=== PATIENT | male | born 1945 | race Caucasian/White ===

== ENCOUNTER 2017-03-19 07:08 | Observation (INO) | payer OTHER ==
[~2017-03-19 07:08] MED LIST: ceFAZolin 2 GM/SWFI 2 GM/20 ML SYR IVP ONE
[2017-03-19] MEDS ORDERED: LR 1,000 ML IV ONE (07:37)
[2017-03-19] MEDS ORDERED: THROMBIN (BOVINE) 5,000 UNIT VIAL TP ONE (07:38)
[2017-03-19] MEDS ORDERED: BUPIVACAINE 0.25% 30 ML SDV ONE (07:38)
[2017-03-19] MEDS ORDERED: CHLORHEXIDINE GLUC HIBICLENS 118 ML BTL TP ONE (07:38)
[2017-03-19] MEDS ORDERED: BACITRACIN 50,000 UNITS/10 ML SYR IRR ONE (07:40)
[2017-03-19] MEDS ORDERED: MIDAZOLAM 2 MG/2 ML VIAL IVP ONE (09:55)
[2017-03-19] MEDS ORDERED: MIDAZOLAM 2 MG/2 ML VIAL ONE (09:56)
--- NOTE | 2017-03-19 09:56 | PDANEPAE ---
ANE Past Medical History - Cardiovascular History Hx Hypertension: No Hx Arrhythmias: No Hx Chest Pain: No Hx Coronary Artery / Peripheral Vascular Disease: No Hx CHF / Valvular Disease: No Hx Palpitations: No - Pulmonary History Hx COPD: No Hx Asthma/Reactive Airway Disease: No Hx Recent Upper Respiratory Infection: No Hx Oxygen in Use at Home: No Hx Sleep Apnea: Yes Sleep Apnea Screening Result - Last Documented: Positive - Neurologic History Hx Cerebrovascular Accident: No Hx Seizures: No Hx Dementia: No - Endocrine History Hx Diabetes: No Hypothyroid: No Hyperthyroid: No Obesity: no - Renal History Hx Renal Disorders: No Renal History Comment: RENAL CYST - Liver History Hx Hepatic Disorders: No Hepatic History Comment: CLAUDE - Neurological & Psychiatric Hx Hx Neurological and Psychiatric Disorders: No - Cancer History Hx Cancer: No Cancer History Comment: NECK SKIN CA REMOVED - Congenital Disorder History Hx Congenital Disorders: Yes Congenital History Comment: 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 SON & FATHER ALSO POS - GI History Hx Gastrointestinal Disorders: No - Other Health History Other Health History: NEG - Chronic Pain History Chronic Pain: Yes (BACK & NECK) - Surgical History Prior Surgeries: COLONOSCOPY. CHOLECYSTECTOMY. CARPAL TUNNEL. VASECTOMY. UMB HERNIA ANE Review of Systems Review of Systems: - Exercise capacity METS (RN): 4 METS ANE Patient History - Allergies Allergies/Adverse Reactions: No Known Allergies Allergy (Unverified 03/16/17 12:47) - Home Medications Home Medications: Acyclovir 03/16/17 [Last Taken 03/12/17] Aleve 03/16/17 [Last Taken 03/11/17] Herbals/Supplements -Info Only 03/16/17 [Last Taken 03/11/17] - NPO status NPO Since - Liquids (Date): 03/18/17 NPO Since - Liquids (Time): 19:00 NPO Since - Solids (Date): 03/18/17 NPO Since - Solids (Time): 19:00 - Anes Hx Anes Hx: no prior problems - Smoking Hx Smoking Status: Never smoked Marijuana use: No - Alcohol Use Alcohol Use: Occasionally - Family Anes Hx Family Anes Hx: neg - N/A Family Hx Anesthesia Complications: NEG ANE Labs/Vital Signs - Vital Signs Blood Pressure: 144/90 Heart Rate: 75 Respiratory Rate: 16 O2 Sat (%): 94 Height: 182.88 cm Weight: 93.894 kg ANE Physical Exam - Airway Neck exam: FROM Mallampati Score: Class 1 Mouth exam: normal dental/mouth exam - Pulmonary Pulmonary: no respiratory distress, no rales or rhonchi, clear to auscultation - Cardiovascular Cardiovascular: regular rate and rhythym, no murmur, rub, or gallop - ASA Status ASA Status: II ANE Anesthesia Plan Anesthesia Plan: general endotracheal anesthesia
[2017-03-19] MEDS ORDERED: fentaNYL 100 MCG/2 ML INJ ONE ×4 (10:07→12:55)
[2017-03-19] MEDS ORDERED: PROPOFOL/EMULSION 500 MG/50 ML BOTTLE IV ONE (10:07)
[2017-03-19] MEDS ORDERED: REMIFENTANIL HCL 1 MG VIAL ONE (10:07)
[2017-03-19] MEDS ORDERED: ceFAZolin 2 GM/SWFI 20 ML SYR IVP ONE (10:07)
[2017-03-19] MEDS ORDERED: DEXAMETHASONE 4 MG/ML VIAL ONE (10:09)
[2017-03-19] MEDS ORDERED: ONDANSETRON 4 MG/2 ML VIAL ONE (10:09)
[2017-03-19] MEDS ORDERED: ROCURONIUM 50 MG/5 ML VIAL ONE (10:10)
[2017-03-19] MEDS ORDERED: LIDOCAINE 2% 5 ML SDV ONE (10:10)
[2017-03-19] MEDS ORDERED: SUGAMMADEX SODIUM 200 MG/2 ML VIAL IVP ONE (10:10)
[2017-03-19] MEDS ORDERED: PROPOFOL 200 MG/20 ML VIAL ONE (10:13)
[2017-03-19] MEDS ORDERED: PHENYLEPHRINE HCL 100 MCG/ML SYR ONE (10:16)
[2017-03-19] MEDS ORDERED: ACETAMINOPHEN 500 MG TAB PO PRN (11:17)
[2017-03-19] MEDS ORDERED: HYDROCODONE/APAP 5/325 TAB PO PRN (11:17)
[2017-03-19] MEDS ORDERED: PROMETHAZINE HCL 25 MG/ML INJ IVP PRN (11:17)
[2017-03-19] MEDS ORDERED: LR 500 ML IV PRN (11:17)
[2017-03-19] MEDS ORDERED: OXYCODONE/APAP 5/325 TAB PO PRN (11:17)
[2017-03-19] MEDS ORDERED: ONDANSETRON 4 MG/2 ML VIAL IVP PRN ×2 (11:17→11:56)
[2017-03-19] MEDS ORDERED: NALOXONE HCL 0.4 MG/ML INJ IVP PRN ×2 (11:17→12:06)
[2017-03-19] MEDS ORDERED: oxyCODONE IR 5 MG TAB PO PRN (11:56)
[2017-03-19] MEDS ORDERED: ONDANSETRON DISINTEGRATING 4 MG TAB PO PRN (11:56)
[2017-03-19] MEDS ORDERED: MAGNESIUM HYDROXIDE 30 ML UDCUP PO PRN (11:56)
[2017-03-19] MEDS ORDERED: BISACODYL 10 MG SUPP PR PRN (11:56)
[2017-03-19] MEDS ORDERED: LACTULOSE 20 GM/30 ML UDCUP PO PRN (11:56)
[2017-03-19] MEDS ORDERED: diphenhydrAMINE 25 MG CAP PO PRN (11:56)
[2017-03-19] MEDS ORDERED: NS W/ 20 KCl/L 1,000 ML IV SCH (12:00)
[2017-03-19] MEDS: fentaNYL 100 MCG/2 ML INJ IVP PRN ×5 (12:03→12:56)
--- NOTE | 2017-03-19 12:05 | PDHPUP ---
History & Physical Update H&P update statement: This history and physical update is based on an assessment of the patient which was completed after admission or registration (within 24 hours), but prior to the surgery/procedure. H&P update: H&P reviewed & patient examined, no change in patient's condition since H&P completed
[2017-03-19] MEDS ORDERED: DIAZEPAM 10 MG/2 ML SYR ONE (12:07)
--- NOTE | 2017-03-19 12:08 | POSTANESTH ---
Post Anesthetic Evaluation Cardiovascular Status: Tx Hyper/Hypo-tension Respiratory Status: Normal, Stable Level of Consciousness/Mental Status: Can Participate in Eval Pain Control: Inadeq, Add Tx Required Nausea/Vomiting Control: Adequate, Prn Tx Ordered Complications Possibly Related to Anesthesia: None Noted
[2017-03-19] MEDS: DIAZEPAM 10 MG/2 ML SYR IVP PRN ×4 (12:10→12:45)
--- NOTE | 2017-03-19 12:11 | SOAPPROG ---
SOAP Progress Note Assessment/Plan: Assessment: 71 yo M sp C5/6 ACDF Plan: stable hard collar PT/OT John x 1 please call with neuro changes 03/19/17 12:06 Subjective: + neck pain, no arm pain Objective: Vital Signs Temp Pulse Resp BP Pulse Ox 36.6 C 75 16 144/90 H 94 03/19/17 08:06 03/19/17 09:58 03/19/17 09:58 03/19/17 09:58 03/19/17 09:58 awake, alert PERRL, no facial droop KYARA x 4 + light touch ICD10 Worksheet Patient Problems: Problems Problem Status Onset Fusion of spine of cervical region Acute - ICD10 Problem Qualifiers (1) Fusion of spine of cervical region
--- NOTE | 2017-03-19 12:44 | GOP ---
[f rep st] OPERATIVE REPORT DATE OF OPERATION: 03/19/2017 SURGEON: Sammy Leung MD LICENSED INVESTMENT SALES ASSISTANT: ELLEN Fierro. ANESTHESIA: General endotracheal. 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 PROCEDURE PERFORMED: 1. Mini open exposure for a complete C5-6 anterior cervical diskectomy and arthrodesis with an 11 mm structural PEEK interbody spacer and local autograft. 2. Placement of a 23 mm CastleLoc-P LnK anterior cervical plate with self-drilling screws. 3. Use of intraoperative microscopy and fluoroscopy. FINDINGS: ESTIMATED BLOOD LOSS: Trace. INDICATIONS: The patient is a 71-year-old man with myelopathic symptoms and right upper extremity ra dicular symptoms who has a C5-6 disk herniation and both neural foraminal and central canal stenosis. He has failed extensive conservative care and presents now for surgical decompression and stabiliza tion. DESCRIPTION OF PROCEDURE: After informed was obtained, the patient was taken to the operating room a nd placed in supine position with the head in the halter retractor system. The anterior cervical reg ion was prepped and draped in sterile fashion. After fluoroscopic localization of levels, the subcut aneous and intramuscular tissues were infiltrated with local anesthesia. A horizontal linear incisio n was then created at the level of the C5-6 interspace. This was carried through the platysmal layer using the monopolar electrocautery and carried in the avascular plane between the sternocleidomastoi d and carotid sheath laterally, and the strap muscles, trachea, and esophagus medially down to the pr evertebral fascia, which was carefully incised with Metzenbaum scissors. The C5-6 interspace was rakesh ntified and re-verified using intraoperative fluoroscopy. There was an extremely large osteophyte, w hich was carefully removed and harvested for local autograft. The Wing distraction pins were inser yumiko and a slight amount of distraction created across the interspace. A complete diskectomy was then performed with preparation of endplates and removal of posterior longitudinal ligament. The posteri or protruding osteophyte was also removed, and bilateral foraminotomies were performed. Following ad equate decompression, the remaining endplates were carefully prepared and an appropriately sized 11 m m structural PEEK interbody spacer packed with local autograft in the center was placed under fluoros copic image guidance in the interspace. The distraction was removed an appropriately sized 23 mm LnK CastleLoc-P anterior cervical plate was then placed and secured with self-drilling screws. The ante rior hole of the plate was then gently packed with the residual local autograft along with in the lef t-sided uncovertebral joint. A drain was then placed. The subcutaneous and intramuscular tissues we re re-infiltrated with local anesthesia. The wound was closed in a layered fashion using interrupted Vicryl sutures followed by Steri-Strips on the skin. COMPLICATIONS: None. DISPOSITION: The patient was extubated and transferred to the recovery room in stable condition. /[id number]/MODL
[2017-03-19] MEDS: METHOCARBAMOL 750 MG TAB PO PRN (17:26)
[2017-03-19] MEDS: POLYETHYLENE GLYCOL 3350 17 GM PKT PO SCH ×2 (17:27→22:11)
[2017-03-19] MEDS: ceFAZolin 2 GM/DEXTROSE 100 ML IV SCH (17:27)
[2017-03-19] MEDS: FAMOTIDINE 20 MG TAB PO SCH (22:10)
[2017-03-19] MEDS: SENNOSIDES/DOCUSATE SODIUM TAB PO SCH (22:11)
[2017-03-20 00:45] VITALS: RESP 18
[2017-03-20] MEDS: METHOCARBAMOL 750 MG TAB PO PRN ×2 (01:19→13:19)
[2017-03-20] MEDS: ceFAZolin 2 GM/DEXTROSE 100 ML IV SCH (01:27)
[2017-03-20 04:28] VITALS: BP 123/81
--- NOTE | 2017-03-20 07:16 | SOAPPROG ---
SOAP Progress Note Assessment/Plan: Assessment: POD #1 s/p C5/6 ACDF. Doing well today with improved right hand paresthesia Tolerating scrambled eggs Plan: Hard collar at all times x 2 weeks. DC home today. Follow up in 10-14 days. Subjective: Sitting up in bed, eating breakfast. Pain well controlled. Left hand paresthesia improved. Objective: Vital Signs Temp Pulse Resp BP Pulse Ox 36.4 C 74 18 123/81 H 96 03/20/17 04:00 03/20/17 04:00 03/20/17 04:00 03/20/17 04:00 03/20/17 04:00 03/19/17 03/20/17 03/21/17 05:59 05:59 05:59 Intake Total 3569 Output Total 2105 Balance 1464 Neuro: CLAY, sens +LT 5/5 bilateral upper/lower ext Incision: Dressing dry JESSICA: 90 ml overnight. 25 ml in bulb this AM. ICD10 Worksheet Patient Problems: Problems Problem Status Onset Fusion of spine of cervical region Acute
[2017-03-20 07:32] VITALS: PULSE 61; TEMP 98.1; O2SAT 93
--- NOTE | 2017-03-20 09:12 | ASMTCMCOM ---
CM Note CM Note Notes: Chart reviewed. Pt s/p ACDF. Needs hard collar for 2 weeks. PT and OT notes pending. Needs TBD. CM to follow. Date Signed: 03/20/2017 09:11 AM Electronically Signed By:Alley Lund RN
[2017-03-20] MEDS: FAMOTIDINE 20 MG TAB PO SCH (09:56)
[2017-03-20] MEDS: SENNOSIDES/DOCUSATE SODIUM TAB PO SCH (09:56)
[2017-03-20] MEDS: POLYETHYLENE GLYCOL 3350 17 GM PKT PO SCH (09:56)
--- NOTE | 2017-03-20 12:53 | ASMTCMCOM ---
CM Note CM Note Notes: Patient medically cleared for dc. Per PT cleared with no needs, CM available should needs arise. Date Signed: 03/20/2017 12:52 PM Electronically Signed By:Alley Lund RN
[2017-03-22] MEDS ORDERED: ENOXAPARIN 40 MG/0.4 ML SYR SC SCH (09:00)
== END 2017-03-20 13:36 | disposition home or self-care (01) ==
LOC: F3N 07:08
PROVIDERS: ADMIT Neurological Surgery; ATTEND Neurological Surgery
PROC: 0RG10A0 Fusion of Cervical Vertebral Joint with Interbody Fusion Device, Anterior Approach, Anterior Column, Open Approach (ICD-10-PCS; principal; 2017-03-19 09:15)
DX: M47.12 Other spondylosis with myelopathy, cervical region (principal); M50.022 Cervical disc disorder at C5-C6 level with myelopathy; M48.02 Spinal stenosis, cervical region; G47.30 Sleep apnea, unspecified
CPT/HCPCS: 22551; 72040; 76001; 97161; 97165; C1713; G8978; G8979; G8980; G8987; G8988; G8989; J0171; J0690; J1100; J2250; J2370; J2405; J2704; J3010

== ENCOUNTER 2017-05-19 06:07 | Inpatient (IN) | payer OTHER ==
[~2017-05-19 06:07] MED LIST changes: +TRANEXAMIC ACID 1,000 MG in NS (SYRINGE) 50 ML IV ONE; -ceFAZolin 2 GM/SWFI 2 GM/20 ML SYR IVP ONE
[2017-05-19] MEDS ORDERED: REMIFENTANIL HCL 1 MG VIAL IV ONE (06:08)
[2017-05-19] MEDS ORDERED: morphINE PF 5 MG/10 ML INJ IT ONE (06:34)
[2017-05-19] MEDS ORDERED: fentaNYL 100 MCG/2 ML INJ IT ONE (06:34)
[2017-05-19] MEDS ORDERED: ACETAMINOPHEN 500 MG TAB PO ONE (06:34)
[2017-05-19] MEDS ORDERED: ceFAZolin 2 GM/SWFI 2 GM/20 ML SYR IVP ONE (06:34)
[2017-05-19] MEDS ORDERED: BUPIVACAINE 0.25% 30 ML SDV ONE ×2 (07:11→07:23)
[2017-05-19] MEDS ORDERED: CHLORHEXIDINE GLUC HIBICLENS 118 ML BTL TP ONE (07:11)
[2017-05-19] MEDS ORDERED: BACITRACIN 50,000 UNITS/10 ML SYR IRR ONE ×3 (07:12→12:30)
[2017-05-19] MEDS ORDERED: CITRATE DEXTROSE SOLN 500 ML BAG ONE ×2 (07:12→13:49)
[2017-05-19] MEDS ORDERED: THROMBIN (BOVINE) 5,000 UNIT VIAL TP ONE (07:12)
[2017-05-19] MEDS ORDERED: LR 1,000 ML IV ONE (07:34)
--- NOTE | 2017-05-19 08:25 | PDANEPAE ---
ANE History of Present Illness TLIF ANE Past Medical History - Cardiovascular History Hx Hypertension: No Hx Arrhythmias: No Hx Chest Pain: No Hx Coronary Artery / Peripheral Vascular Disease: No Hx CHF / Valvular Disease: No Hx Palpitations: No - Pulmonary History Hx COPD: No Hx Asthma/Reactive Airway Disease: No Hx Recent Upper Respiratory Infection: No Hx Oxygen in Use at Home: No Hx Sleep Apnea: Yes Sleep Apnea Screening Result - Last Documented: Positive Pulmonary History Comment: keith uses cpap - Neurologic History Hx Cerebrovascular Accident: No Hx Seizures: No Hx Dementia: No - Endocrine History Hx Diabetes: No - Renal History Hx Renal Disorders: Yes Renal History Comment: RENAL CYST - Liver History Hx Hepatic Disorders: No Hepatic History Comment: CLAUDE - Neurological & Psychiatric Hx Hx Neurological and Psychiatric Disorders: Yes Neurological / Psychiatric History Comment: neuropathy, left thigh nerve pain, causes muscle spasms across buttocks - Cancer History Hx Cancer: No Cancer History Comment: NECK SKIN CA REMOVED - Congenital Disorder History Hx Congenital Disorders: Yes Congenital History Comment: 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 SON POS - GI History Hx Gastrointestinal Disorders: No - Other Health History Other Health History: NEG - Chronic Pain History Chronic Pain: Yes (arthritis to hands) - Surgical History Prior Surgeries: COLONOSCOPY. CHOLECYSTECTOMY. CARPAL TUNNEL. VASECTOMY. UMB HERNIA. cervical fussion 03/19/17 ANE Review of Systems Review of Systems: - Exercise capacity METS (RN): 4 METS ANE Patient History - Allergies Allergies/Adverse Reactions: No Known Allergies Allergy (Verified 05/05/17 10:42) - Home Medications Home Medications: Acyclovir [Zovirax 200 mg (*)] 200 mg PO BID 03/16/17 [Last Taken 1 Week Ago ~] Herbals/Supplements -Info Only 1 ea PO DAILY 03/16/17 [Last Taken 2 Months Ago ~ 03/21/17] Cholecalciferol Vit D3 [Vitamin D3 (*)] 1,000 units PO DAILY 03/19/17 [Last Taken 2 Months Ago ~03/21/17] Tetrahydrozoline 0.05% [Visine (*)] 1 drop EACHEYE DAILY PRN 03/19/17 [Last Taken 05/18/17] Calcium Carbonate/Vitamin D3 [Calcium 1,000 + D3 Caplet] 1 each PO DAILY [Last Taken 2 Months Ago ~03/21/17] Naproxen Sodium [Aleve 220 MG (*)] 220 mg PO BID 05/01/17 [Last Taken 2 Months Ago ~03/21/17] - NPO status NPO Since - Liquids (Date): 05/18/17 NPO Since - Liquids (Time): 21:00 NPO Since - Solids (Date): 05/18/17 NPO Since - Solids (Time): 18:00 - Smoking Hx Smoking Status: Never smoked - Family Anes Hx Family Hx Anesthesia Complications: none ANE Labs/Vital Signs - Vital Signs Blood Pressure: 141/88 Heart Rate: 75 Respiratory Rate: 16 O2 Sat (%): 93 Height: 182.88 cm Weight: 91.626 kg ANE Physical Exam - Airway Neck exam: FROM Mallampati Score: Class 2 - Pulmonary Pulmonary: clear to auscultation - Cardiovascular Cardiovascular: regular rate and rhythym - ASA Status ASA Status: II ANE Anesthesia Plan Anesthesia Plan: general endotracheal anesthesia Total IV Anesthesia: Yes
[2017-05-19] MEDS ORDERED: REMIFENTANIL HCL 1 MG VIAL ONE ×7 (08:30→14:41)
[2017-05-19] MEDS ORDERED: PROPOFOL/EMULSION 500 MG/50 ML BOTTLE IV ONE ×8 (08:30→15:50)
[2017-05-19] MEDS ORDERED: MIDAZOLAM 2 MG/2 ML VIAL ONE (08:32)
[2017-05-19] MEDS ORDERED: ONDANSETRON 4 MG/2 ML VIAL ONE ×2 (08:37→16:09)
[2017-05-19] MEDS ORDERED: SUCCINYLCHOLINE CHLORIDE 200 MG/10 ML SYR IVP ONE (08:37)
[2017-05-19] MEDS ORDERED: DEXAMETHASONE 4 MG/ML VIAL ONE ×2 (08:37)
[2017-05-19] MEDS ORDERED: VANCOMYCIN HCL/NORMAL SALINE 250 ML IV ONE (09:46)
[2017-05-19] MEDS ORDERED: HYDROmorphONE/DILAUDID 2 MG/ML INJ ONE (11:22)
[2017-05-19] MEDS ORDERED: fentaNYL 100 MCG/2 ML INJ IVP PRN (13:15)
[2017-05-19] MEDS ORDERED: MIDAZOLAM 2 MG/2 ML VIAL IVP ONE (13:15)
[2017-05-19] MEDS ORDERED: HYDROmorphONE/DILAUDID 1 MG/ML INJ IVP PRN (13:15)
[2017-05-19] MEDS ORDERED: ONDANSETRON 4 MG/2 ML VIAL IVP PRN (13:15)
[2017-05-19] MEDS ORDERED: DEXAMETHASONE 4 MG/ML VIAL IVP PRN (13:15)
[2017-05-19] MEDS ORDERED: NALOXONE HCL 0.4 MG/ML INJ IVP PRN ×2 (13:15→16:53)
[2017-05-19] MEDS ORDERED: ALBUTEROL 3 ML DEYVIAL IH PRN (13:15)
[2017-05-19] MEDS ORDERED: fentaNYL 100 MCG/2 ML INJ ONE (13:26)
[2017-05-19] MEDS ORDERED: morphINE PF 5 MG/10 ML INJ ONE (13:27)
[2017-05-19] MEDS ORDERED: PHENYLEPHRINE HCL 100 MCG/ML SYR ONE ×2 (15:04→16:26)
[2017-05-19] MEDS ORDERED: diphenhydrAMINE 25 MG CAP PO PRN (16:53)
[2017-05-19] MEDS ORDERED: BISACODYL 10 MG SUPP PR PRN (16:53)
[2017-05-19] MEDS ORDERED: LACTULOSE 20 GM/30 ML UDCUP PO PRN (16:53)
[2017-05-19] MEDS ORDERED: ONDANSETRON DISINTEGRATING 4 MG TAB PO PRN (16:53)
[2017-05-19] MEDS ORDERED: HYDROmorphONE/DILAUDID 2 MG/ML INJ IVP PRN (16:53)
[2017-05-19] MEDS ORDERED: MAGNESIUM HYDROXIDE 30 ML UDCUP PO PRN (16:53)
[2017-05-19] MEDS ORDERED: NS W/ 20 KCl/L 1,000 ML IV SCH (17:00)
[2017-05-19] MEDS ORDERED: TETRAHYDROZOLINE 0.05% 15 ML OPHT.BTL EACHEYE PRN (17:02)
--- NOTE | 2017-05-19 17:08 | POSTOPPROG ---
Post Op Note Date of Operation: 05/20/17 Surgeon: Jose F Pretty Injector Assembler: DARRELL, PAc Anesthesiologist: Olesya Anesthesia: GET(General Endotracheal) Pre-op Diagnosis: L2-S1 DJD/stenosis Post-op Diagnosis: same Indication: bilateral LE weakness, pain, low back pain Procedure: L2-S1TLIF. Placement of lumbar drain Findings: severe DJD, calcified discs and tethered dura Inf/Abcess present in the surg proc area at time of surgery?: No EBL: Greater than 1000 Complications: durotomy x 3 Drains: Cheko Johnson (NOT to suction)
--- NOTE | 2017-05-19 17:12 | POSTANESTH ---
Post Anesthetic Evaluation Cardiovascular Status: Normal, Stable Respiratory Status: Similar to Pre-op Cond. Level of Consciousness/Mental Status: Mildly Sleepy, Arousable Pain Control: Adequate, Prn Tx Ordered Nausea/Vomiting Control: Adequate, Prn Tx Ordered
--- NOTE | 2017-05-19 17:18 | SOAPPROG ---
SOAP Progress Note Assessment/Plan: POST OP CHECK Assessment: doing well s/p L2-S1 TLIF Plan: HOB flat no suction to JESSICA use CPAP at night titrate LD 10-20 ml/hr - Do not clamp 05/19/17 17:15 Subjective: eyes open, comfortable, non verbal due to residual anesthesia Objective: Vital Signs Temp Pulse Resp BP Pulse Ox 37.0 C 75 16 141/88 H 93 05/19/17 06:51 05/19/17 08:25 05/19/17 08:25 05/19/17 08:25 05/19/17 08:25 HR: 98 O2: 98% BP: 118/76 Neuro PERRLA EOMI CLAY spontaneously, intermittently follows commands flexes both knees moves both feet raises both arms to face ICD10 Worksheet Patient Problems: Problems Problem Status Onset Fusion of spine of cervical region Acute
[2017-05-19] MEDS: ceFAZolin 2 GM/SWFI 2 GM/20 ML SYR IVP SCH (18:09)
--- NOTE | 2017-05-19 18:22 | GOP ---
[f rep st] OPERATIVE REPORT DATE OF OPERATION: 05/19/2017 SURGEON: Sammy Leung MD NEUROSURGEON: Sammy Leung MD ASSISTANT SHIFT SUPERVISOR: ELLEN Maurice. ANESTHESIA: General endotracheal. PREOPERATIVE DIAGNOSIS: 1. Severe multilevel lumbar degenerative joint disease and loss of normal sagittal alignment (lordosis) with multilevel severe spinal stenosis, lateral recess and foraminal impingement. 2. Intractable low back pain and left greater than right lower extremity radicular symptoms. 3. Failed conservative care. POSTOPERATIVE DIAGNOSIS: 1. Severe multilevel lumbar degenerative joint disease and loss of normal sagittal alignment (lordosis) with multilevel severe spinal stenosis, lateral recess and foraminal impingement. 2. Intractable low back pain and left greater than right lower extremity radicular symptoms. 3. Failed conservative care. PROCEDURE PERFORMED: 1. Left-sided L3-4, L4-5, and L5-S1 far lateral transpedicular decompression and right-sided L2-3 far lateral transpedicular decompression with L2 through S1 posterior segmental (pedicle screw and axle device) fixation and posterior lateral fusion with local autograft and bone morphogenic protein. 2. L2-3, L3-4, L4-5, and L5-S1 posterior/transforaminal lumbar interbody fusion with 2 structural PEEK interbody spacers, local autograft and bone morphogenic protein at each level. 3. Use of intraoperative microscopy, fluoroscopy, and computer volumetric stereotactic navigation with intraoperative neurophysiologic testing. 4. Injection of intrathecal narcotic analgesics in subcutaneous and intramuscular local anesthesia for postoperative pain control. 5. Extension of laminectomy defect for repair of cerebrospinal fluid leak. 6. Placement of lumbar drain for therapeutic drainage of cerebrospinal fluid. FINDINGS: ESTIMATED BLOOD LOSS: 850 cc. INDICATIONS: The patient is a 71-year-old man, with longstanding history of intractable low back pain and left greater than right lower extremity radicular symptoms including pain, weakness, and numbness. He has failed extensive conservative care and presents now for multilevel surgical decompression and stabilization. DESCRIPTION OF PROCEDURE: After informed consent was obtained, the patient was taken to the operating room and placed in the prone position on the Cheko table. The lumbosacral area was prepped and draped in a sterile fashion. After fluoroscopic localization of the correct levels, the subcutaneous and intramuscular tissues were infiltrated with local anesthesia. A midline linear incision was then created over the L2 through S1 spinous processes. This was carried down to the fascial layer, which was incised using monopolar electrocautery and carried in the subperiosteal plane along the spinous process and out the lamina bilaterally. There were very overgrown facet joints and the anatomy was very distorted, but this was carefully dissected out and after re- verification of the correct levels, dissection was carried out over the facet joints and left-sided far lateral transpedicular decompressions were performed with complete unroofing of the neural foramina and facet joints at L3-4, L4-5, and L5-S1, with a right-sided decompression at the L2-3 level. Following this, the [employer] neuronavigational system was brought in and using computer volumetric stereotactic navigation, pedicle screws were placed at L2, L3, L4, and L5, and S1 bilaterally. Each individual screw was tested neurophysiologically with monopolar electrostimulation and interpretation of the potentials by the surgeon. Small individual rods were then placed first at L5-S1, then at L4-5, then at L3-4, then at L2-3, during which time distraction was created across each of the interspaces and complete diskectomies were performed with preparation of endplates and placement of 2 structural PEEK interbody spacers, local autograft, and bone morphogenic protein for L2-3, L3-4 , L4-5, and L5-S1 posterior/transforaminal lumbar interbody fusions. Note that at essentially every level, the disk herniations were extremely calcified and stuck to the dura. Meticulous dissection was performed in order to carefully peel the dura off the calcified longstanding disk herniations, but there were some extremely thin areas of dura and some leakage on the left at the L5-S1 level and on the right at the L2-3 level and possibly at the L3-4 level on the left. Small pieces of DuraGen were placed in these areas and the leakage at the L5-S1 level on the left did require a single 4-0 Nurolon suture. There was no ongoing leakage thereafter, but I was concerned given the nature of the extremely thin dura that was stuck to the disk spaces that we had removed. I felt that it was in the best interest of the patient to place a lumbar drain and keep him flat for a few days so as to not end up with a chronic CSF leak. Following adequate decompression and placement of the interbody grafts, the small rods were removed and longer rods were contoured with maximal lordosis in order to prevent flat back syndrome. These were placed from L2-S1 and a slight amount of compression was created across each of the interspaces in order to prevent interbody spacer back out and to increase the likelihood of interbody fusion. Following this, the remaining lamina and facet joints on the left at L2 -3 and on the right at L3-4, L4-5, and L5-S1 were extensively decorticated and the residual local autograft along with bone morphogenic protein was packed into the decorticated lamina and drilled out facet joints for posterolateral fusions from L2-S1. Following this, the lumbar drain was placed at the superior aspect of the wound, but being careful not to place the needle at the level of the conus. The catheter was tunneled and good CSF outflow was obtained. 200 mcg of Duramorph along with 50 mcg of fentanyl were injected intrathecally through the lumbar drain catheter, which was connected to a Joseph drainage system and secured to the skin with a single nylon suture. Following this and placement of the posterolateral bone graft from L2-S1, a subfascial Cheko-Johnson was placed and the wound was closed in a layered fashion using interrupted Vicryl sutures, followed by Dermabond on the skin. COMPLICATIONS: None. DISPOSITION: The patient was extubated and transported to the intensive care unit due to the lumbar drain. /[id number]/MODL MTDD
[2017-05-19] MEDS: GABAPENTIN 300 MG CAP PO SCH (21:25)
[2017-05-19] MEDS: ACETAMINOPHEN 500 MG TAB PO SCH (21:25)
[2017-05-19] MEDS: SENNOSIDES/DOCUSATE SODIUM TAB PO SCH (21:25)
[2017-05-19] MEDS: POLYETHYLENE GLYCOL 3350 17 GM PKT PO SCH (21:25)
[2017-05-19] MEDS: morphINE SR 15 MG TAB PO SCH (21:25)
[2017-05-19] MEDS: ACYCLOVIR 200 MG CAP PO SCH (21:25)
[2017-05-19] MEDS: FAMOTIDINE 20 MG TAB PO SCH (21:25)
[2017-05-19] MEDS ORDERED: ceFAZolin 2 GM/DEXTROSE 100 ML IV SCH (22:00)
[2017-05-19] MEDS: morphINE PCA 30 MG/30 ML PCA IV PRN (22:36)
[2017-05-19] MEDS: ONDANSETRON 4 MG/2 ML VIAL IVP PRN (22:39)
[2017-05-20] MEDS: ceFAZolin 2 GM/SWFI 2 GM/20 ML SYR IVP SCH (02:21)
[2017-05-20] MEDS ORDERED: chlorproMAZINE HCL 25 MG TAB PO PRN (03:07)
[2017-05-20 05:13] LABS: PLATELET COUNT 189 10^3/uL (150-400)
[2017-05-20] MEDS: ACETAMINOPHEN 500 MG TAB PO SCH ×3 (05:31→21:11)
[2017-05-20] MEDS: oxyCODONE IR 5 MG TAB PO PRN ×2 (05:31→20:14)
[2017-05-20] MEDS: GABAPENTIN 300 MG CAP PO SCH ×3 (05:31→21:11)
--- NOTE | 2017-05-20 07:24 | SOAPPROG ---
SOAP Progress Note Assessment/Plan: Assessment: doing well s/p L2-S1 TLIF Left leg still painful but improved LD patent but blood. Discussed with Dr. Caban and he wants rate changed to 5-10ml/hr Plan: HOB flat no suction to JESSICA use CPAP at night titrate LD 5-10 ml/hr - Do not clamp legal technician to assist with management of medical issues. Blood sugar 160 this AM. Discussed with Dr. Caban this AM 05/20/17 07:28 Subjective: Awake, alert, comfortable. States his left anterior thigh is still painful, but improved. Denies new numbness, tingling or weakness Objective: Vital Signs Temp Pulse Resp BP Pulse Ox 37.5 C 80 15 108/51 L 93 05/20/17 04:00 05/20/17 06:00 05/20/17 06:00 05/20/17 06:00 05/20/17 06:00 Laboratory Results 05/20/17 05:05 05/20/17 05:05 05/19/17 05/20/17 05/21/17 05:59 05:59 05:59 Intake Total 2848 Output Total 1465 15 Balance 1383 -15 Neuro: CLAY, Sens throughout 07/11 bilateral LE JESSICA: 30ml overnight Incision: quarter sized area of drainage towards top of incision LUmbar drain: patent, bloody. drained 10-20ml/hr overnight. - Pending Discharge Pending Discharge Within 24 Hours: No Pending Discharge Within 48 Hours: No ICD10 Worksheet Patient Problems: Problems Problem Status Onset Fusion of spine of cervical region Acute
[2017-05-20] MEDS: ENOXAPARIN 40 MG/0.4 ML SYR SC SCH (09:10)
[2017-05-20] MEDS: CHOLECALCIFEROL VIT D3 1,000 UNITS TAB PO SCH (09:11)
[2017-05-20] MEDS: ACYCLOVIR 200 MG CAP PO SCH ×2 (09:11→21:11)
[2017-05-20] MEDS: morphINE SR 15 MG TAB PO SCH ×2 (09:11→21:11)
[2017-05-20] MEDS: SENNOSIDES/DOCUSATE SODIUM TAB PO SCH ×2 (09:11→21:11)
[2017-05-20] MEDS: FAMOTIDINE 20 MG TAB PO SCH ×2 (09:11→21:10)
[2017-05-20] MEDS: CALCIUM CARB W/VIT D 500 MG TAB PO SCH (09:11)
[2017-05-20] MEDS: POLYETHYLENE GLYCOL 3350 17 GM PKT PO SCH ×3 (09:11→21:12)
[2017-05-20] MEDS ORDERED: D50W 25 GM/50 ML SYR IVP PRN (09:54)
--- NOTE | 2017-05-20 10:19 | GCON ---
[f rep st] CONSULTATION TELEGRAPH OFFICE TELEPHONE CLERK CONSULTATION The patient was examined postoperatively after receiving L2-S1 TLIF. The patient is a very pleasant 71-year-old white male with a past medical history of obstructive sleep apnea. He is examined postop eratively after receiving L2 through S1 TLIF. In discussion with the patient, he states he is still having some burning sensation of his left thigh. Otherwise he feels well. He denies any cough or pro ductive sputum. There is no chest pain, pleuritic-type chest pain or angina equivalent. He denies a [place] fever or night sweats. Currently, he is resting comfortably. PAST MEDICAL HISTORY: Significant for obstructive sleep apnea. ALLERGIES: No known allergies to medications. SOCIAL HISTORY: No history of tobacco use and frequent alcohol use. Work history: He is retired fr om the [employer] where he worked in [employer]. He is with 6 children. He has been living in [place] most of his life. FAMILY HISTORY: Significant for diabetes. REVIEW OF SYSTEMS: A 10-point review of systems was performed and is negative with the exception of what is seen in the HPI. MEDICATIONS: Include Aleve, vitamin D and acyclovir. PHYSICAL EXAM: VITAL SIGNS: Blood pressure 136/55, pulse is 85, respirations are 18, temperature is 37.0, oxygen saturation 95% on 2 L. GENERAL: He is a well-developed, well-nourished, elderly white male who is resting comfortably in mild distress. HEENT: Eyes CATALINO, EOMI. Throat shows no erythe ma or tonsillar hypertrophy. NECK: Supple. There is no cervical adenopathy. HEART: Regular rate and rhythm without murmurs, rubs, or gallops. LUNGS: Show diminished breath sounds, but no wheeze. ABDOMEN: Soft, nontender. Bowel sounds are present in all 4 quadrants. EXTREMITIES: No clubbing, cyanosis, or edema. LABORATORY DATA: White count is 10.5, hemoglobin 13, hematocrit 39, platelet count is 189. Sodium 1 40, potassium 4.9, chloride 108, CO2 26, BUN is 19, creatinine 0.8, glucose is 164. Arterial blood g as, pH 7.35, pCO2 of 39, PO2 of 96, bicarb 22, oxygen saturation 97%. IMPRESSION: 1. Status post transforaminal lumbar interbody fusion L2 through S1. 2. Obstructive sleep apnea. 3. Pain well controlled. 4. Elevated blood sugar. RECOMMENDATIONS: 1. Continue adequate pain control. 2. We will get a hemoglobin A1c as well as place patient on a sliding scale. 3. DVT and PE prophylaxis. 4. Stress ulcer prophylaxis. 5. PT and OT. 6. Early ambulation. /[id number]/MODL
--- NOTE | 2017-05-20 10:32 | PDMN ---
Medical Necessity Medical necessity: IP surgery per [facility] cpt [id number]
--- NOTE | 2017-05-20 10:46 | ASMTCMCOM ---
CM Note CM Note Notes: Patient is POD #1 L2-S1 TLIF. He is on bedrest, PT/OT on hold until this is discontinued. Patient lives with his Amy and has six children. Discharge needs are TBD and will be managed by Case Management. Date Signed: 05/20/2017 10:46 AM Electronically Signed By:Sydnie Burger RN
[2017-05-20] MEDS ORDERED: PNEUMOC 13-VAL CONJ-DIP CRM/PF 0.5 ML SYR IM ONE (11:10)
[2017-05-20] MEDS: INSULIN LISPRO 100 UNIT/ML SC SCH ×2 (12:48→18:42)
--- NOTE | 2017-05-20 14:14 | PDHOSCONS ---
History and Physical - Chief Complaint Hyperglycemia - History of Present Illness We have been asked to provide consultation for Hyperglycemia by the Neurosurgery team: This is a 71 yo male admitted for L2-S1 TLIF who was found to have glucose around 160 today. He has a family hx of diabetes. Given the hyperglycemia we have been asked to provide consultation. from a post op perspective, he still has left leg radiculopathy. Pain is well controlled PMHx: MARII PSHx: Right carpal tunnel release, c5/6 ACDF, cholecystectomy SHx: No T, social ETOH, no illicits FmHx: DMII History Information - Allergies/Home Medication List Allergies/Adverse Reactions: No Known Allergies Allergy (Verified 05/05/17 10:42) Home Medications: Acyclovir [Zovirax 200 mg (*)] 200 mg PO BID 03/16/17 [Last Taken 1 Week Ago ~] Herbals/Supplements -Info Only 1 ea PO DAILY 03/16/17 [Last Taken 2 Months Ago ~ 03/21/17] Cholecalciferol Vit D3 [Vitamin D3 (*)] 1,000 units PO DAILY 03/19/17 [Last Taken 2 Months Ago ~03/21/17] Tetrahydrozoline 0.05% [Visine (*)] 1 drop EACHEYE DAILY PRN 03/19/17 [Last Taken 05/18/17] Calcium Carbonate/Vitamin D3 [Calcium 1,000 + D3 Caplet] 1 each PO DAILY [Last Taken 2 Months Ago ~03/21/17] Naproxen Sodium [Aleve 220 MG (*)] 220 mg PO BID 05/01/17 [Last Taken 2 Months Ago ~03/21/17] I have personally reviewed and updated: medical history, social history - Social History Smoking Status: Never smoked Review of Systems Review of Systems: ROS: 10pt was reviewed & negative except for what was stated in HPI & below Physical Exam Physical Exam: Temp Pulse Resp BP Pulse Ox 37 C 83 16 146/59 H 97 05/20/17 08:00 05/20/17 14:00 05/20/17 14:00 05/20/17 14:00 05/20/17 14:00 O2 (L/minute) 2 Constitutional: no apparent distress Eyes: PERRL, EOMI Ears, Nose, Mouth, Throat: moist mucous membranes, hearing normal Cardiovascular: regular rate and rhythym, No JVD, No edema Respiratory: no respiratory distress, no rales or rhonchi, clear to auscultation Gastrointestinal: normoactive bowel sounds, soft, non-tender abdomen Skin: warm Neurologic: AAOx3 Psychiatric: interacting appropriately, not anxious Lymph, Heme, Immunologic: No petechiae Lab Data & Imaging Review 05/20/17 05:05 05/20/17 05:05 WBC 10.59 10^3/uL (3.80-9.50) H 05/20/17 05:05 RBC 4.42 10^6/uL (4.40-6.38) 05/20/17 05:05 Hgb 13.7 g/dL (13.7-17.5) 05/20/17 05:05 Hct 39.7 % (40.0-51.0) L 05/20/17 05:05 MCV 89.8 fL (81.5-99.8) 05/20/17 05:05 MCH 31.0 pg (27.9-34.1) 05/20/17 05:05 MCHC 34.5 g/dL (32.4-36.7) 05/20/17 05:05 RDW 12.7 % (11.5-15.2) 05/20/17 05:05 Plt Count 189 10^3/uL (150-400) 05/20/17 05:05 MPV 9.2 fL (8.7-11.7) 05/20/17 05:05 Neut % (Auto) 83.4 % (39.3-74.2) H 05/20/17 05:05 Lymph % (Auto) 7.2 % (15.0-45.0) L 05/20/17 05:05 [place] % (Auto) 9.0 % (4.5-13.0) 05/20/17 05:05 Eos % (Auto) 0.0 % (0.6-7.6) L 05/20/17 05:05 Baso % (Auto) 0.1 % (0.3-1.7) L 05/20/17 05:05 Nucleat RBC Rel Count 0.0 % (0.0-0.2) 05/20/17 05:05 Absolute Neuts (auto) 8.84 10^3/uL (1.70-6.50) H 05/20/17 05:05 Absolute Lymphs (auto) 0.76 10^3/uL (1.00-3.00) L 05/20/17 05:05 Absolute Monos (auto) 0.95 10^3/uL (0.30-0.80) H 05/20/17 05:05 Absolute Eos (auto) 0.00 10^3/uL (0.03-0.40) L 05/20/17 05:05 Absolute Basos (auto) 0.01 10^3/uL (0.02-0.10) L 05/20/17 05:05 Absolute Nucleated RBC 0.00 10^3/uL (0-0.01) 05/20/17 05:05 Immature Gran % 0.3 % (0.0-1.1) 05/20/17 05:05 Immature Gran # 0.03 10^3/uL (0.00-0.10) 05/20/17 05:05 Puncture Site ARTERIAL LINE 05/19/17 08:03 Patient Temperature 37.0 DEGREES 05/19/17 08:03 pCO2 39 mmHg (34-38) H 05/19/17 08:03 pO2 96 mmHg (65-75) H 05/19/17 08:03 Total CO2 22 mEq/L (23-27) L 05/19/17 08:03 ABG pH 7.35 (7.35-7.45) 05/19/17 08:03 ABG HCO3 21 mEq/L (22-26) L 05/19/17 08:03 ABG O2 Saturation 97 % (92-95) H 05/19/17 08:03 ABG Base Excess -3.6 mEq/L (-2.5-2.5) L 05/19/17 08:03 Total O2 Concentration 10.0 LITERS 05/19/17 08:03 Sodium 140 mEq/L (135-145) 05/20/17 05:05 Potassium 4.9 mEq/L (3.5-5.2) 05/20/17 05:05 Chloride 108 mEq/L (97-110) 05/20/17 05:05 Carbon Dioxide 26 mEq/l (22-31) 05/20/17 05:05 Anion Gap 6 mEq/L (8-16) L 05/20/17 05:05 BUN 19 mg/dL (7-23) 05/20/17 05:05 Creatinine 0.8 mg/dL (0.7-1.3) 05/20/17 05:05 Estimated GFR > 60 05/20/17 05:05 Glucose 164 mg/dL (70-100) H 05/20/17 05:05 POC Glucose 137 mg/dL (70-100) H 05/20/17 11:31 Hemoglobin A1c 6.0 % (4.0-6.0) 05/20/17 05:05 Estim Average Glucose 126 mg/dL (68-126) 05/20/17 05:05 Calcium 8.2 mg/dL (8.5-10.4) L 05/20/17 05:05 Patient ABO/Rh O POSITIVE 05/19/17 08:15 Antibody Screen NEGATIVE 05/19/17 08:15 Assessment & Plan Assessment: #Hyperglycemia #MARII, on CPAP #s/p L2-S1 TLIF #chronic low back pain with left sided radiculopathy Plan: -start insulin sliding scale -check a1c -post op care per primary Thank you for this consult, we will follow along
[2017-05-20] MEDS: METHOCARBAMOL 750 MG TAB PO PRN (18:49)
[2017-05-21] MEDS: oxyCODONE IR 5 MG TAB PO PRN ×2 (03:11→11:30)
[2017-05-21] MEDS: METHOCARBAMOL 750 MG TAB PO PRN ×2 (03:11→11:30)
[2017-05-21] MEDS: GABAPENTIN 300 MG CAP PO SCH ×3 (06:09→20:56)
[2017-05-21] MEDS: ACETAMINOPHEN 500 MG TAB PO SCH ×3 (06:09→20:57)
[2017-05-21] MEDS: INSULIN LISPRO 100 UNIT/ML SC SCH ×3 (09:10→17:25)
[2017-05-21] MEDS: SENNOSIDES/DOCUSATE SODIUM TAB PO SCH ×2 (09:20→20:56)
[2017-05-21] MEDS: FAMOTIDINE 20 MG TAB PO SCH ×2 (09:20→20:57)
[2017-05-21] MEDS: CHOLECALCIFEROL VIT D3 1,000 UNITS TAB PO SCH (09:21)
[2017-05-21] MEDS: NS 1,000 ML IV SCH (09:21)
[2017-05-21] MEDS: ACYCLOVIR 200 MG CAP PO SCH ×2 (09:21→20:57)
[2017-05-21] MEDS: POLYETHYLENE GLYCOL 3350 17 GM PKT PO SCH ×3 (09:21→20:57)
[2017-05-21] MEDS: ENOXAPARIN 40 MG/0.4 ML SYR SC SCH (09:21)
[2017-05-21] MEDS: morphINE SR 15 MG TAB PO SCH ×2 (09:21→20:56)
[2017-05-21] MEDS: CALCIUM CARB W/VIT D 500 MG TAB PO SCH (09:21)
--- NOTE | 2017-05-21 09:42 | NEUSURGPN ---
Assessment/Plan: Assessment: doing well s/p L2-S1 TLIF Left leg and back still painful but improved Plan: HOB flat Pain management - continue current regimen HOB flat no suction to JESSICA LD drain in place - titrate to 5-10 cc out per hour. Do not clamp. use CPAP at night hospitalists assisting with management of medical issues. Discussed with Dr. Caban this AM Please call NS with any questions or concerns Subjective: Pt resting in bed, using CPAP. States he gets uncomfortable in bed. Objective: AAOx3 NAD VSS MAEx4 Motor 5/5 BLE JESSICA drain in place LD in place +LT Urinary Catheter in Place: Yes Urinary Catheter Indication: Surgical Requirement Catheter Insertion Date: 05/19/17 - Physician Discussed Patient with DrDenis: Xochitl Neurosurgery Physical Exam - Vitals, I&O, Labs I and O 05/20/17 05/21/17 05/22/17 05:59 05:59 05:59 Intake Total 2848 3908 Output Total 1465 3648 19 Balance 1383 260 -19 Weight 91.626 kg Intake: Oral (ml) 720 1370 IV Intake (ml) 1000 IV Infused (ml) 1128 2538 NS W/ 20 KCl/L 1,000 ml @ 1123 100 mls/hr IV CONT LEORA Rx#:[id number] Ns 1,000 ml @ 100 mls/hr 2519 IV CONT LEORA Rx#: [id number] morphINE PHARMACOMETRICIAN See Protocol 5 19 IV PRN PRN Rx#: [id number] Output: Urine (ml) 1225 3400 Catheter 1225 3400 CSF Drainage Amount 210 208 19 Lumbar Drain 210 208 19 JESSICA Drain Output (ml) 30 40 Left Posterior Back 30 40 Other: Intake Quantity Yes Sufficient Number of Stools Catheter 0 Vital Signs Temp Pulse Resp BP Pulse Ox 37.1 C 90 22 H 138/68 H 91 L 05/21/17 07:55 05/21/17 09:00 05/21/17 09:00 05/21/17 09:00 05/21/17 09:00 Laboratory Results 05/20/17 05:05 05/20/17 05:05 ICD10 Worksheet Patient Problems: Problems Problem Status Onset Fusion of spine of cervical region Acute
[2017-05-21] MEDS: ONDANSETRON 4 MG/2 ML VIAL IVP PRN ×2 (09:51→14:14)
--- NOTE | 2017-05-21 10:56 | HOSPPROG ---
Hospitalist Progress Note Assessment/Plan: #Hyperglycemia, resolving, no e/o of DMII -A1C 6 -Glucose overall well controlled #MARII, on CPAP #s/p L2-S1 TLIF #chronic low back pain with left sided radiculopathy #Nausea: PRN antiemetics Plan: Some nausea this morning. Better with zofran. Glucose ok. Overall stable from medical mgmt. A1C reviewed, glucose reviewed. Post op care per primary Lovenox for DVT proph per primary Thank you for this consult, we will follow along Subjective: some nausea this morning. Pain is well controlled. Objective: Vital Signs Temp Pulse Resp BP Pulse Ox 37.1 C 86 19 130/107 H 94 05/21/17 07:55 05/21/17 09:53 05/21/17 09:53 05/21/17 09:53 05/21/17 09:53 Laboratory Results 05/20/17 05:05 05/20/17 05:05 05/20/17 05/21/17 05/22/17 05:59 05:59 05:59 Intake Total 2848 3908 Output Total 1465 3648 24 Balance 1383 260 -24 - Physical Exam Constitutional: no apparent distress Eyes: PERRL Ears, Nose, Mouth, Throat: moist mucous membranes, hearing normal Cardiovascular: regular rate and rhythym, No edema Respiratory: no respiratory distress, no rales or rhonchi, clear to auscultation Gastrointestinal: normoactive bowel sounds Skin: warm Neurologic: AAOx3 Psychiatric: interacting appropriately, not anxious, not encephalopathic Lymph, Heme, Immunologic: No petechiae ICD10 Worksheet Patient Problems: Problems Problem Status Onset Fusion of spine of cervical region Acute
--- NOTE | 2017-05-21 11:11 | PDINTPN ---
Inbound Call Center Representative Progress Note Assessment/Plan: Assessment/plan: * Status post TLIF L2 through S1. Lumbar drain still in place -continue to lie flat * Pain-fairly well controlled * Obstructive sleep apnea-continues on his home machine at night. * VTE prophylaxis * Stress ulcer prophylaxis Subjective: Pain better than yesterday. No other current complaints. Objective: Vital Signs Temp Pulse Resp BP Pulse Ox 37.1 C 85 17 149/76 H 97 05/21/17 07:55 05/21/17 11:00 05/21/17 11:00 05/21/17 11:00 05/21/17 11:00 Laboratory Results 05/20/17 05:05 05/20/17 05:05 05/20/17 05/21/17 05/22/17 05:59 05:59 05:59 Intake Total 2848 3908 Output Total 1465 3648 34 Balance 1383 260 -34 - Time Spent With Patient Time Spent With Patient: 25 min of time spent with patient, over 1/2 involved with coordination of care or counseling Physical Exam - Physical Exam General Appearance: WD/WN, alert EENT: PERRL/EOMI, normal ENT inspection Neck: non-tender, full range of motion, supple, normal inspection Respiratory: chest non-tender, lungs clear, normal breath sounds Cardiac/Chest: normal peripheral pulses, regular rate, rhythm, systolic murmur Abdomen: normal bowel sounds, non-tender, soft Male Genitalia: deferred Rectal: deferred Skin: normal color, warm/dry Extremities: normal range of motion, non-tender, normal inspection, normal capillary refill Neuro/Psych: alert ICD10 Worksheet Patient Problems: Problems Problem Status Onset Fusion of spine of cervical region Acute
[2017-05-22] MEDS: morphINE PCA 30 MG/30 ML PCA IV PRN (02:48)
[2017-05-22] MEDS: METHOCARBAMOL 750 MG TAB PO PRN ×2 (04:17→10:40)
[2017-05-22] MEDS: oxyCODONE IR 5 MG TAB PO PRN ×3 (05:07→16:46)
[2017-05-22] MEDS: GABAPENTIN 300 MG CAP PO SCH ×3 (05:08→21:18)
[2017-05-22] MEDS: ACETAMINOPHEN 500 MG TAB PO SCH ×3 (05:08→21:19)
--- NOTE | 2017-05-22 07:15 | SOAPPROG ---
SOAP Progress Note Assessment/Plan: Assessment: POD#3 doing well s/p L2-S1 TLIF bilateral buttock discomfort this AM, no new neuro changes Plan: HOB flat no suction to JESSICA use CPAP at night titrate LD 5-10 ml/hr - Do not clamp cnc manufacturing engineer to assist with management of medical issues. Discussed with Dr. Caban Subjective: awake, comfortable. He is reporting pain across his buttock this AM, likely due to having to lay flat denies new numbness, tingling or weakness Objective: Vital Signs Temp Pulse Resp BP Pulse Ox 37.3 C 88 14 134/71 H 94 05/22/17 04:00 05/22/17 06:00 05/22/17 06:00 05/22/17 06:00 05/22/17 06:00 Laboratory Results 05/20/17 05:05 05/20/17 05:05 18 05/22/17 05/23/17 05:59 05:59 05:59 Intake Total 3908 2755.6 Output Total 3648 3950 5 Balance 260 -1194.4 -5 JESSICA: 40ml Neuro: CLAY, sens +LT, follows commands Incision: CDI, no drainage ICD10 Worksheet Patient Problems: Problems Problem Status Onset Fusion of spine of cervical region Acute
[2017-05-22] MEDS: CALCIUM CARB W/VIT D 500 MG TAB PO SCH (08:58)
[2017-05-22] MEDS: FAMOTIDINE 20 MG TAB PO SCH ×2 (08:58→21:19)
[2017-05-22] MEDS: ACYCLOVIR 200 MG CAP PO SCH ×2 (08:58→21:18)
[2017-05-22] MEDS: POLYETHYLENE GLYCOL 3350 17 GM PKT PO SCH ×3 (08:58→21:19)
[2017-05-22] MEDS: INSULIN LISPRO 100 UNIT/ML SC SCH ×3 (08:58→19:01)
[2017-05-22] MEDS: morphINE SR 15 MG TAB PO SCH ×2 (08:58→21:19)
[2017-05-22] MEDS: CHOLECALCIFEROL VIT D3 1,000 UNITS TAB PO SCH (08:58)
[2017-05-22] MEDS: SENNOSIDES/DOCUSATE SODIUM TAB PO SCH ×2 (08:58→21:19)
[2017-05-22] MEDS: ENOXAPARIN 40 MG/0.4 ML SYR SC SCH (08:59)
--- NOTE | 2017-05-22 09:47 | PDINTPN ---
Grind Operator Progress Note Assessment/Plan: Assessment/plan: * Status post TLIF L2 through S1. Lumbar drain possibly out this afternoon -continue to lie flat * Pain-fairly well controlled * Obstructive sleep apnea-continues on his home machine at night. * VTE prophylaxis * Stress ulcer prophylaxis * Nutrition-adequate * No PT/OT yet Subjective: Resting comfortably in bed. Pain is well controlled. Low level agitation Objective: Vital Signs Temp Pulse Resp BP Pulse Ox 36.6 C 78 18 140/68 H 97 05/22/17 07:00 05/22/17 09:00 05/22/17 09:00 05/22/17 09:00 05/22/17 09:00 Laboratory Results 05/20/17 05:05 05/20/17 05:05 05/21/17 05/22/17 05/23/17 05:59 05:59 05:59 Intake Total 3908 2755.6 Output Total 3648 3950 19 Balance 260 -1194.4 -19 - Time Spent With Patient Time Spent With Patient: 25 min of time spent with patient, over 1/2 involved with coordination of care counseling. Case discussed with nursing Physical Exam - Physical Exam General Appearance: alert, no apparent distress EENT: PERRL/EOMI Neck: non-tender, full range of motion Respiratory: chest non-tender, lungs clear, normal breath sounds Cardiac/Chest: normal peripheral pulses, regular rate, rhythm Peripheral Pulses: 2+: carotid (R), carotid (L), femoral (R), femoral (L), dorsalis-pedis (R), dorsalis-pedis (L) Abdomen: normal bowel sounds, non-tender, soft Male Genitalia: deferred Rectal: deferred Skin: normal color, warm/dry Extremities: non-tender Neuro/Psych: alert, normal mood/affect, oriented x 3 ICD10 Worksheet Patient Problems: Problems Problem Status Onset Fusion of spine of cervical region Acute
--- NOTE | 2017-05-22 11:27 | HOSPPROG ---
Hospitalist Progress Note Assessment/Plan: #Hyperglycemia, resolving, no e/o of DMII -A1C 6 -Glucose overall well controlled #MARII, on CPAP #s/p L2-S1 TLIF #chronic low back pain with left sided radiculopathy #Nausea: PRN antiemetics Plan: glucose is overall well controlled Post op care per primary Lovenox for DVT proph per primary Dispo per primary Thank you for this consult, we will cont to follow Subjective: some pain today. glucose overall well controlled. Objective: Vital Signs Temp Pulse Resp BP Pulse Ox 36.6 C 91 26 H 117/50 L 95 05/22/17 07:00 05/22/17 10:00 05/22/17 10:00 05/22/17 10:00 05/22/17 10:00 Laboratory Results 05/20/17 05:05 05/20/17 05:05 05/21/17 05/22/17 05/23/17 05:59 05:59 05:59 Intake Total 3908 2755.6 Output Total 3648 3950 624 Balance 260 -1194.4 -624 - Physical Exam Constitutional: no apparent distress, appears nourished Eyes: PERRL, EOMI Ears, Nose, Mouth, Throat: moist mucous membranes Cardiovascular: No edema Respiratory: no respiratory distress Gastrointestinal: No distension Neurologic: AAOx3 Psychiatric: interacting appropriately, not anxious, not encephalopathic Lymph, Heme, Immunologic: No petechiae ICD10 Worksheet Patient Problems: Problems Problem Status Onset Fusion of spine of cervical region Acute
--- NOTE | 2017-05-22 11:34 | ASMTCMCOM ---
CM Note CM Note Notes: Patient and his both expressed today their choice for SNF rehab is [facility] in [place]. A referral was made through [employer] and a message was left for Ilsa Whitley, who Anthony (patient's son) states is the admissions contact. Ilsa's # is [phone]. Patient's son Anthony works at this SNF and wants to be able to closely monitor his progress. Explained to Anthony we steff need to make the D/C arrangements on this end including transportation as the family thought they could do it themselves. CM will follow. Date Signed: 05/22/2017 11:33 AM Electronically Signed By:Marifer Garay LCSW
[2017-05-22] MEDS: DIAZEPAM 5 MG TAB PO PRN ×2 (13:15→21:20)
[2017-05-22] MEDS ORDERED: LIDOCAINE 1% 300 MG/30 ML SDV MISC ONE (13:45)
[2017-05-22] MEDS ORDERED: LIDOCAINE 1% 300 MG/30 ML SDV IF ONE (14:30)
[2017-05-22] MEDS: BACITRACIN OINTMENT 1 PACKET TP SCH ×2 (15:40→21:18)
[2017-05-23] MEDS: DIAZEPAM 5 MG TAB PO PRN (01:57)
[2017-05-23] MEDS: GABAPENTIN 300 MG CAP PO SCH ×3 (06:28→21:24)
[2017-05-23] MEDS: ACETAMINOPHEN 500 MG TAB PO SCH ×3 (06:29→21:24)
[2017-05-23] MEDS: METHOCARBAMOL 750 MG TAB PO PRN ×2 (06:31→17:28)
--- NOTE | 2017-05-23 07:36 | SOAPPROG ---
SOAP Progress Note Assessment/Plan: Assessment/plan: * Status post TLIF L2 through S1. Lumbar drain possibly out this afternoon -continue to lie flat * Pain-fairly well controlled * Hyperglycemia-diabetes unlikely as hemoglobin A1c is 6.0. Blood sugars are running high though. -will increase sliding scale * Obstructive sleep apnea-continues on his home machine at night. * VTE prophylaxis * Stress ulcer prophylaxis * Nutrition-adequate * No PT/OT yet Subjective: Resting comfortably. No current complaints. Somewhat restless though. Objective: Vital Signs Temp Pulse Resp BP Pulse Ox 36.9 C 71 12 137/65 H 96 05/23/17 05:59 05/23/17 05:59 05/23/17 05:59 05/23/17 05:59 05/23/17 05:59 Laboratory Results 05/20/17 05:05 05/20/17 05:05 05/22/17 05/23/17 05/24/17 05:59 05:59 05:59 Intake Total 2755.6 1952 Output Total 3950 2454 Balance -1194.4 -502 Laboratory Results 05/20/17 05:05 05/20/17 05:05 05/23/17 05/22/17 05/22/17 06:20 18:33 12:00 POC Glucose 156 mg/dL H mg/dL 164 mg/dL H mg/dL 158 mg/dL H mg/dL (70 - 100) (70 - 100) (70 - 100) 05/22/17 08:57 POC Glucose 117 mg/dL H mg/dL (70 - 100) - Time Spent With Patient Time Spent With Patient: 25 min of time spent with patient, over 1/2 involved with coordination of care or counseling Physical Exam - Physical Exam General Appearance: alert, no apparent distress EENT: PERRL/EOMI Neck: non-tender, full range of motion Respiratory: chest non-tender, lungs clear, normal breath sounds Cardiac/Chest: normal peripheral pulses, regular rate, rhythm Abdomen: normal bowel sounds, non-tender, soft Male Genitalia: deferred Rectal: deferred Skin: normal color, warm/dry Extremities: non-tender Neuro/Psych: alert ICD10 Worksheet Patient Problems: Problems Problem Status Onset Fusion of spine of cervical region Acute
[2017-05-23] MEDS: POLYETHYLENE GLYCOL 3350 17 GM PKT PO SCH ×3 (08:05→21:31)
[2017-05-23] MEDS: SENNOSIDES/DOCUSATE SODIUM TAB PO SCH ×2 (08:05→21:24)
[2017-05-23] MEDS: CALCIUM CARB W/VIT D 500 MG TAB PO SCH (08:38)
[2017-05-23] MEDS: morphINE SR 15 MG TAB PO SCH ×2 (08:38→21:31)
[2017-05-23] MEDS: FAMOTIDINE 20 MG TAB PO SCH ×2 (08:38→21:24)
[2017-05-23] MEDS: INSULIN LISPRO 100 UNIT/ML SC SCH ×3 (08:38→18:58)
[2017-05-23] MEDS: CHOLECALCIFEROL VIT D3 1,000 UNITS TAB PO SCH (08:38)
[2017-05-23] MEDS: ENOXAPARIN 40 MG/0.4 ML SYR SC SCH (08:38)
[2017-05-23] MEDS: ACYCLOVIR 200 MG CAP PO SCH ×2 (08:38→21:24)
[2017-05-23] MEDS: BACITRACIN OINTMENT 1 PACKET TP SCH ×2 (08:39→21:24)
--- NOTE | 2017-05-23 10:00 | NEUSURGPN ---
Date of Surgery: 05/19/17 Post Op Day: 4 Assessment/Plan: Assessment: POD#4 s/p L2-S1 TLIF Lumbar drain removed on 3 Plan: - neuro stable - raise HOB by 10 degrees every hour until fully upright, then may be out of bed with assist and work with PT - JESSICA drain x 1, continue. 65 cc output in last 24 hours - brace on when out of bed - postop L-spine x-rays pending - pain control - possibly transfer to the floor later today - SCDs/TEDs/Lovenox - please contact neurosurgery with any changes in neuro status/exam Subjective: No headache, nausea, vomiting. Pain controlled. Objective: Awake. Alert. PERRL Following commands Strength full at 5/5 Sensation intact Catheter Insertion Date: 05/19/17 Neurosurgery Physical Exam - Vitals, I&O, Labs I and O 05/22/17 05/23/17 05/24/17 05:59 05:59 05:59 Intake Total 2755.6 1952 Output Total 3950 2454 Balance -1194.4 -502 Intake: Oral (ml) 1120 1550 IV Infused (ml) 1635.6 402 Ns 1,000 ml @ 100 mls/hr 1625 387 IV CONT LEORA Rx#: [id number] morphINE LAWNMOWER MECHANIC See Protocol 10.6 15 IV PRN PRN Rx#: [id number] Output: Urine (ml) 3800 2325 Catheter 3800 2325 CSF Drainage Amount 110 64 Lumbar Drain 110 64 JESSICA Drain Output (ml) 40 65 Left Posterior Back 40 65 Other: Number of Stools Catheter 0 3 Vital Signs Temp Pulse Resp BP Pulse Ox 37.1 C 72 13 108/87 H 96 05/23/17 08:00 05/23/17 08:00 05/23/17 08:00 05/23/17 08:00 05/23/17 08:00 Laboratory Results 05/20/17 05:05 05/20/17 05:05 ICD10 Worksheet Patient Problems: Problems Problem Status Onset Fusion of spine of cervical region Acute
--- NOTE | 2017-05-23 11:25 | HOSPPROG ---
Hospitalist Progress Note Assessment/Plan: #Hyperglycemia, glucose have increased overnight. 150's -A1C 6 -increase ISS #Hiccups: Thorazine as needed #MARII, on CPAP #s/p L2-S1 TLIF #chronic low back pain with left sided radiculopathy #Nausea: PRN antiemetics Plan: Increase ISS Thorazine as needed, given another 12.5 mg now Post op care per primary Lovenox for DVT proph per primary Dispo per primary Thank you for this consult, we will cont to follow discussed during team rounds. Subjective: some elevation of glucose. Seen in the ICU. Pain is well controlled. Objective: Vital Signs Temp Pulse Resp BP Pulse Ox 37.1 C 72 13 108/87 H 96 05/23/17 08:00 05/23/17 08:00 05/23/17 08:00 05/23/17 08:00 05/23/17 08:00 Laboratory Results 05/20/17 05:05 05/20/17 05:05 05/22/17 05/23/17 05/24/17 05:59 05:59 05:59 Intake Total 2755.6 1952 Output Total 3950 2454 Balance -1194.4 -502 - Physical Exam Constitutional: no apparent distress, not in pain Eyes: PERRL, EOMI Ears, Nose, Mouth, Throat: moist mucous membranes Cardiovascular: regular rate and rhythym, no murmur, rub, or gallop, No JVD, No edema Gastrointestinal: normoactive bowel sounds, soft, non-tender abdomen, no palpable masses Skin: warm Neurologic: AAOx3 Psychiatric: interacting appropriately, not anxious, not encephalopathic, thought process linear Lymph, Heme, Immunologic: No petechiae ICD10 Worksheet Patient Problems: Problems Problem Status Onset Fusion of spine of cervical region Acute
[2017-05-23] MEDS: oxyCODONE IR 5 MG TAB PO PRN (11:48)
[2017-05-23] MEDS ORDERED: chlorproMAZINE HCL 25 MG TAB PO PRN (11:49)
[2017-05-23] MEDS ORDERED: NS 500 ML IV ONE (23:53)
--- NOTE | 2017-05-24 00:05 | CPEKG ---
Heart Rate: 123 RR Interval: 488 QRSD Interval: 68 QT Interval: 300 QTC Interval: 429 QRS [facility]: 38 T Wave [facility]: 75 EKG Severity - ABNORMAL ECG - EKG Impression: ATRIAL FIBRILLATION EKG Impression: BORDERLINE T ABNORMALITIES, ANT-LAT LEADS Electronically Signed By: Gaston Valle 24-May-2017 12:09:57
[2017-05-24] MEDS ORDERED: DILTIAZEM 50 MG/10 ML VIAL IV ONE (02:00)
--- NOTE | 2017-05-24 02:00 | HOSPPROG ---
Hospitalist Progress Note Assessment/Plan: XC: Notified by RN of irregular heart rate in 120-150 range. Obtained ECG and confirmed new AF w/ RVR. I cannot find prior documentation of this so presuming new problem. Patient is disoriented but answering questions and denying pain. He is having loose stools. I will order 1 L IVF, Diltiazem IV (cannot take PO currently due to mental status), GI PCR, BMP/Mg, and transfer to PCU for cardiac monitoring. Objective: Vital Signs Temp Pulse Resp BP Pulse Ox 37.1 C 88 16 126/81 H 91 L 05/23/17 23:18 05/23/17 23:18 05/23/17 23:18 05/23/17 23:18 05/23/17 23:18 Laboratory Results 05/20/17 05:05 05/24/17 00:15 05/22/17 05/23/17 05/24/17 05:59 05:59 05:59 Intake Total 2755.6 1952 Output Total 6200 3470 4680 [facility]1194.4 -502 -2530 - Time Spent With Patient Time Spent with Patient: greater than 25 minutes Time Spent with Patient: Greater than 25 minutes spent on this patients care, greater than 50% of time spent counseling, educating, and coordinating care regarding the above mentioned plan. ICD10 Worksheet Patient Problems: Problems Problem Status Onset Fusion of spine of cervical region Acute
--- NOTE | 2017-05-24 08:16 | NEUSURGPN ---
Date of Surgery: 05/19/17 Post Op Day: 5 Assessment/Plan: Assessment: POD#5 s/p L2-S1 TLIF Lumbar drain removed on 3. Plan: - neuro stable - appreciate medicine following, patient transferred last night due to new onset Afib with RVR - up as tolerated with PT/OT, please contact neurosurgery should patient develop MOON - JESSICA drain x 1, continue - brace on when out of bed - postop L-spine x-rays pending - pain control- will stop MS Contin due to over sedation last evening - SCDs/TEDs/Lovenox - please contact neurosurgery with any changes in neuro status/exam Subjective: Having localized back pain. No headache, nausea, vomiting. No leg pain. Objective: Awake. Alert. PERRL. Muscle strength full at 5/5 Sensation intact Catheter Insertion Date: 05/19/17 Neurosurgery Physical Exam - Vitals, I&O, Labs I and O 05/23/17 05/24/17 05/25/17 05:59 05:59 05:59 Intake Total 1951 Output Total 2454 2530 Balance -502 -2530 Intake: Oral (ml) 1550 IV Infused (ml) 402 Ns 1,000 ml @ 100 mls/hr 387 IV CONT LEORA Rx#: [id number] morphINE SUPERVISOR BINDERY See Protocol 15 IV PRN PRN Rx#: [id number] Output: Urine (ml) 2325 2450 Catheter 2325 2450 CSF Drainage Amount 64 Lumbar Drain 64 JESSICA Drain Output (ml) 65 80 Left Posterior Back 65 80 Other: Number of Stools Catheter 3 Microbiology 05/24/17 00:45 Gastrointestinal Tract Panel (PCR) - Final Stool No Organism Detected Vital Signs Temp Pulse Resp BP Pulse Ox 36.9 C 89 15 138/75 H 95 05/24/17 07:25 05/24/17 07:25 05/24/17 07:25 05/24/17 07:25 05/24/17 07:25 Laboratory Results 05/20/17 05:05 05/24/17 00:15 ICD10 Worksheet Patient Problems: Problems Problem Status Onset Fusion of spine of cervical region Acute
[2017-05-24] MEDS: SENNOSIDES/DOCUSATE SODIUM TAB PO SCH ×2 (09:56→21:29)
[2017-05-24] MEDS: ACETAMINOPHEN 500 MG TAB PO SCH ×3 (09:56→21:28)
[2017-05-24] MEDS: ACYCLOVIR 200 MG CAP PO SCH ×2 (09:56→21:28)
[2017-05-24] MEDS: FAMOTIDINE 20 MG TAB PO SCH ×2 (09:57→21:28)
[2017-05-24] MEDS: GABAPENTIN 300 MG CAP PO SCH ×3 (09:57→21:28)
[2017-05-24] MEDS: CALCIUM CARB W/VIT D 500 MG TAB PO SCH (09:57)
[2017-05-24] MEDS: CHOLECALCIFEROL VIT D3 1,000 UNITS TAB PO SCH (09:57)
[2017-05-24] MEDS: ENOXAPARIN 40 MG/0.4 ML SYR SC SCH (09:58)
[2017-05-24] MEDS: BACITRACIN OINTMENT 1 PACKET TP SCH ×2 (09:58→21:10)
[2017-05-24] MEDS: INSULIN LISPRO 100 UNIT/ML SC SCH ×3 (10:09→18:21)
[2017-05-24] MEDS: NS 1,000 ML IV SCH (10:10)
[2017-05-24] MEDS: POLYETHYLENE GLYCOL 3350 17 GM PKT PO SCH ×3 (10:10→22:09)
[2017-05-24] MEDS: oxyCODONE IR 5 MG TAB PO PRN (12:17)
[2017-05-24] MEDS: METOPROLOL TARTRATE 25 MG TAB PO SCH ×2 (15:33→21:29)
[2017-05-24] MEDS: traMADol 50 MG TAB PO PRN ×2 (15:34→21:29)
--- NOTE | 2017-05-24 17:24 | HOSPPROG ---
Hospitalist Progress Note Assessment/Plan: #Acute Encephalopathy: possibly from narcotics vs dehydration #New onset Afib, diagnosed 05/23 -unclear reason why he went into Afib, possibly low volume state, received IVF -S/p IV Cardizem x 1 -Now in SR -will start Metoprolol Tartrate, can increase dose if needed -Hold off on AC #Hyperglycemia, glucose have been labile. -A1C 6 -ISS scale was increased on 05/23. May need further increase on 05/25 if still elevated -Unclear reason why glucose has been increase #Hiccups: Thorazine as needed #MARII, on CPAP #s/p L2-S1 TLIF #chronic low back pain with left sided radiculopathy #Nausea: PRN antiemetics Plan: Mentation appears to be improving but still impaired. He is not taking much PO. Will provide IVF, although decreasing the dose from yesterday. Avoid IV morphine if possible. Amy also discontinued the benzo. He is still on other medications that can lead to encephalopathy but as he is appearing to clear, I will continue them as they are also helping with pain mgmt. He does not have any e/o infection at this time. Cont to monitor BB per above. currently in SR. Check TTE Increase ISS tomorrow if still with hyperglycemia. Thorazine as needed Post op care per primary Lovenox for DVT proph per primary Thank you for this consult, we will cont to follow Subjective: Still confused, awake, follows commands, interacts Objective: Vital Signs Temp Pulse Resp BP Pulse Ox 36.7 C 85 16 138/78 H 93 05/24/17 15:35 05/24/17 15:35 05/24/17 15:35 05/24/17 15:35 05/24/17 15:35 Microbiology 05/24/17 00:45 Gastrointestinal Tract Panel (PCR) - Final Stool No Organism Detected Laboratory Results 05/20/17 05:05 05/24/17 00:15 05/23/17 05/24/17 05/25/17 05:59 05:59 05:59 Intake Total 1951 Output Total 4262 7271 5237 Balance -805 -1607 -8725 - Physical Exam Constitutional: no apparent distress Eyes: PERRL, EOMI Ears, Nose, Mouth, Throat: moist mucous membranes Cardiovascular: regular rate and rhythym, No edema Respiratory: no respiratory distress, no rales or rhonchi, clear to auscultation Gastrointestinal: normoactive bowel sounds, No distension Skin: warm Musculoskeletal: generalized weakness Neurologic: No AAOx3 Psychiatric: not anxious, encephalopathic, No interacting appropriately Lymph, Heme, Immunologic: No petechiae ICD10 Worksheet Patient Problems: Problems Problem Status Onset Fusion of spine of cervical region Acute
[2017-05-25] MEDS: ACETAMINOPHEN 500 MG TAB PO SCH ×3 (04:19→21:42)
[2017-05-25] MEDS: traMADol 50 MG TAB PO PRN ×2 (04:27→14:55)
[2017-05-25] MEDS: GABAPENTIN 300 MG CAP PO SCH ×3 (04:28→21:42)
[2017-05-25 05:04] LABS: PLATELET COUNT 287 10^3/uL (150-400)
--- NOTE | 2017-05-25 08:44 | HOSPPROG ---
Hospitalist Progress Note Assessment/Plan: # encephalopathy - possibly d/t narcotics; MS contin stopped # a-fib, RVR - now NSR; trigger hypovolemia vs surgery - was in a-fib for approx 12 hours - low risk for CVA overall; significant risk with anticoagulation given recent spinal surgery - hold for now - cont metop tartrate 12.5 bid - will discuss with RN regarding MOON - TTE ordered # MOON - resolved now; follow for recurrence # hyperglycemia, pre-DM - glucs occasionally high but reasonable - cont lispro SSI # hiccups - thorazine prn # MARII - cpap # L2-S1 TLIF POD#6 - dr Arsh - JESSICA removed today per RN - needs to lay flat 24 hours per nsg Subjective: had MOON last night after a medication; no CP today Objective: Vital Signs Temp Pulse Resp BP Pulse Ox 36.8 C 72 18 148/88 H 95 05/25/17 07:42 05/25/17 07:42 05/25/17 07:42 05/25/17 07:42 05/25/17 07:42 Microbiology 05/24/17 00:45 Gastrointestinal Tract Panel (PCR) - Final Stool No Organism Detected Laboratory Results 05/25/17 04:45 05/25/17 04:45 05/24/17 05/25/17 05/26/17 05:59 05:59 05:59 Intake Total 1950 Output Total 4892 2625 Balance -2530 -133 chart reviewed tele personally reviewed ECG reviewed - Physical Exam Constitutional: other (laying flat, uncomfortable) Cardiovascular: regular rate and rhythym, no murmur, rub, or gallop Respiratory: no respiratory distress, no rales or rhonchi Gastrointestinal: soft, non-tender abdomen, no palpable masses Genitourinary: parra in urethra ICD10 Worksheet Patient Problems: Problems Problem Status Onset Fusion of spine of cervical region Acute
[2017-05-25] MEDS: INSULIN LISPRO 100 UNIT/ML SC SCH ×3 (09:09→18:44)
[2017-05-25] MEDS: POLYETHYLENE GLYCOL 3350 17 GM PKT PO SCH ×3 (09:10→21:39)
[2017-05-25] MEDS: SENNOSIDES/DOCUSATE SODIUM TAB PO SCH ×2 (09:10→21:39)
[2017-05-25] MEDS: BACITRACIN OINTMENT 1 PACKET TP SCH ×2 (09:21→21:42)
[2017-05-25] MEDS: ENOXAPARIN 40 MG/0.4 ML SYR SC SCH (09:22)
[2017-05-25] MEDS: METOPROLOL TARTRATE 25 MG TAB PO SCH ×2 (09:22→21:42)
[2017-05-25] MEDS: CALCIUM CARB W/VIT D 500 MG TAB PO SCH (09:22)
[2017-05-25] MEDS: FAMOTIDINE 20 MG TAB PO SCH ×2 (09:22→21:42)
[2017-05-25] MEDS: CHOLECALCIFEROL VIT D3 1,000 UNITS TAB PO SCH (09:22)
[2017-05-25] MEDS: ACYCLOVIR 200 MG CAP PO SCH ×2 (09:22→21:42)
--- NOTE | 2017-05-25 09:46 | SOAPPROG ---
SOAP Progress Note Assessment/Plan: Assessment: 71 yo M POD #6 L2-S1 TLIF complicated with durotomy Plan: neuro: stable, but headaches last night while up that improved with laying down. JESSICA removed this am, will put back on bedrest for 48 hours with HOB flat a-fib, per Hospitalists scd/yumiko/lovenox for dvt prophylaxis encephalopathy, improved with holding MScontin PT/OT once upright again please call with neuro changes discussed with Dr Bob 05/25/17 09:43 Subjective: no headaches currently, but headaches last night while up no leg pain Objective: Vital Signs Temp Pulse Resp BP Pulse Ox 36.8 C 72 18 148/88 H 95 05/25/17 07:42 05/25/17 07:42 05/25/17 07:42 05/25/17 07:42 05/25/17 07:42 Microbiology 05/24/17 00:45 Gastrointestinal Tract Panel (PCR) - Final Stool No Organism Detected Laboratory Results 05/25/17 04:45 05/25/17 04:45 05/24/17 05/25/17 05/26/17 05:59 05:59 05:59 Intake Total 1950 Output Total 2530 2405 Balance -2530 -455 awake, alert, confused to month but oriented to place/year PERRL, EOMI, no facial droop 5/5 + light touch C/D/I ICD10 Worksheet Patient Problems: Problems Problem Status Onset Fusion of spine of cervical region Acute
--- NOTE | 2017-05-25 12:06 | ECHO ---
[email or web address] [address] [address] Main: [phone] Fax: Transthoracic Echocardiogram Name: ISAAK DAMON MR#: [id number] Study Date: 05/25/2017 Study Time: 10:09 AM Date of : 1945 Age: 71 year(s) Height: 182.9 cm (72 in.) Weight: 91.63 kg (202 lb.) BSA: 2.14 m2 Gender: Male Examination: Echo Indication: Post OP Back surgery Image Quality: Contrast: Requested by: Santiago Beaulieu BP: 148 mmHg/88 mmHg Heart Rate: Rhythm: Normal sinus rhythm with ectopy Indication: Post OP Back surgery Procedure Staff [employer] Baggage Screener: Zachary Marroquin RDCS Reading Physician: Denny Boyd MD Requesting Provider: Conclusions: Normal study Measurements: Chambers Valvular Assessment AV/MV Valvular Assessment TV/PV Normal Normal Normal Name Value Range Name Value Range Name Value Range Ao Karol (MM): 2.6 cm (2.2 cm-3.7 AV Vmax: 1.33 m/s (1 m/s-1.7 PV Vmax: 1.05 m/s (0.6 m/s-0.9 cm) m/s) m/s) IVSd (2D): 1.0 cm (0.6 cm-1.1 AV maxP mmHg ( - ) PV PGmax: 4 mmHg ( - ) cm) LVOT Vmax: 1.05 m/s (0.7 m/s-1.1 LVDd (2D): 5.2 cm (4.2 cm-5.9 m/s) cm) MV E Vmax: 0.71 m/s ( - ) LVDs (2D): 3.5 cm (2.1 cm-4 MV A Vmax: 0.81 m/s ( - ) cm) MV E/A: 0.88 ( - ) LVPWd (2D): 1.2 cm (0.6 cm-1 cm) LVEF (2D): 61 (>=54 %) Continued Measurements: Chambers Valvular Assessment AV/MV Name Value Name Value LADs Lon.5 cm MV E' Septal: 0.06 m/s LA Area: 15.1 cm2 MV E/E' Septal: 12.50 LA Volume: 54 ml MV E/E' Lateral: 8.90 LA Volume Index: 25.2 ml/m2 Findings: Left Ventricle: Patient: ISAAK DAMON Study Date: 05/25/2017 Page 1 of 2 10:09 AM Normal size left ventricle. No LV hypertrophy. Normal global systolic LV function. EF is 61 %. No regional wall motion abnormality. Normal diastolic LV function. Right Ventricle: Normal size right ventricle. Normal RV function. Left Atrium: The left atrium is normal in size. Right Atrium: The right atrium is normal in size. Mitral Valve: The mitral valve is normal in appearance. There is no mitral valve regurgitation. Aortic Valve: Minimal aortic cusp calcification is noted. There is no aortic valve regurgitation. No aortic valve stenosis is present. Tricuspid Valve: The tricuspid valve is normal in appearance and function. Pulmonic Valve: The pulmonic valve is normal in appearance and function. Aorta: The aorta is normal. Pericardium: No pericardial effusion. Exam Comments: There was ectopy noted during the exam. PSLax and Sax were performed from Subcostal view due to lung interference.. (No Signature Object) Patient: ISAAK DAMON Study Date: 05/25/2017 Page 2 of 2 10:09 AM [id number]
--- NOTE | 2017-05-25 14:04 | ASMTCMCOM ---
CM Note CM Note Notes: 05/25/2009 Case Management Note Phone call from Misti at [facility] requesting referral be faxed to [phone]. Faxed via [employer] as facility does not utilize allscripts. Case Management d/c poc: to [facility] in [place] pending acceptance. Case Management to follow. Date Signed: 05/25/2017 02:03 PM Electronically Signed By:Elle Morrison RN
[2017-05-25] MEDS ORDERED: LIDO/EPI 1% **for epidural** 30 ML SDV ONE (14:32)
[2017-05-25] MEDS ORDERED: HYDROmorphONE/DILAUDID 2 MG/ML INJ IVP ONE (16:45)
[2017-05-25] MEDS ORDERED: IOPAMIDOL (ISOVUE-M 300) 15 ML VIAL ONE (17:51)
[2017-05-26] MEDS: traMADol 50 MG TAB PO PRN ×3 (01:08→14:33)
[2017-05-26] MEDS: ACETAMINOPHEN 500 MG TAB PO SCH ×3 (04:09→20:56)
[2017-05-26] MEDS: oxyCODONE IR 5 MG TAB PO PRN ×2 (04:10→13:02)
[2017-05-26] MEDS: GABAPENTIN 300 MG CAP PO SCH ×3 (04:10→20:56)
--- NOTE | 2017-05-26 09:22 | NEUSURGPN ---
Date of Surgery: 05/19/17 Post Op Day: 7 Assessment/Plan: Assessment: POD#5 s/p L2-S1 TLIF Lumbar drain removed on 05/22. Plan: - neuro stable - appreciate medicine following, new onset Afib with RVR - developed MOON when OOB on Thursday. Lay flat for 48 hours. Had blood patch by IR on 05/25 - Will start to raise HOB 05/27 am - brace on when out of bed - postop L-spine x-rays pending - pain control- MS Contin stopped due to oversedation - SCDs/TEDs/Lovenox - please contact neurosurgery with any changes in neuro status/exam Discussed with Dr. Bob Subjective: Having a mild headache rated at a 2/10. No nausea/vomiting. No UE/LE symptoms. Objective: Awake. Alert. PERRL Following commands Strength 5/5 Sensation intact Catheter Insertion Date: 05/19/17 - Physician Discussed Patient with : Xochitl Neurosurgery Physical Exam - Vitals, I&O, Labs I and O 05/25/17 05/26/17 05/27/17 05:59 05:59 05:59 Intake Total 2550 2220 Output Total 2405 2014 Balance 145 205 Intake: Oral (ml) 1350 920 IV Intake (ml) 600 IV Infused (ml) 600 1300 Ns 1,000 ml @ 75 mls/hr 600 1300 IV CONT LEORA Rx#: [id number] Output: Urine (ml) 2200 2000 Catheter 2200 2000 JESSICA Drain Output (ml) 205 15 Left Posterior Back 205 15 Other: Number of Stools Bedside Commode 1 Microbiology 05/25/17 17:00 Gram Stain - Final Back - Aspirate Vital Signs Temp Pulse Resp BP Pulse Ox 37.1 C 63 13 112/69 96 05/26/17 08:41 05/26/17 08:41 05/26/17 08:41 05/26/17 08:41 05/26/17 08:41 Laboratory Results 05/25/17 04:45 05/25/17 04:45 ICD10 Worksheet Patient Problems: Problems Problem Status Onset Fusion of spine of cervical region Acute
[2017-05-26] MEDS: NS 1,000 ML IV SCH ×2 (09:33→22:51)
[2017-05-26] MEDS: INSULIN LISPRO 100 UNIT/ML SC SCH ×3 (09:33→20:06)
[2017-05-26] MEDS: ENOXAPARIN 40 MG/0.4 ML SYR SC SCH (09:54)
[2017-05-26] MEDS: FAMOTIDINE 20 MG TAB PO SCH ×2 (09:56→20:57)
[2017-05-26] MEDS: ACYCLOVIR 200 MG CAP PO SCH ×2 (09:56→20:57)
[2017-05-26] MEDS: CHOLECALCIFEROL VIT D3 1,000 UNITS TAB PO SCH (09:56)
[2017-05-26] MEDS: CALCIUM CARB W/VIT D 500 MG TAB PO SCH (09:56)
[2017-05-26] MEDS: SENNOSIDES/DOCUSATE SODIUM TAB PO SCH ×2 (09:56→22:42)
[2017-05-26] MEDS: BACITRACIN OINTMENT 1 PACKET TP SCH ×2 (09:57→20:57)
[2017-05-26] MEDS: METOPROLOL TARTRATE 25 MG TAB PO SCH (10:04)
--- NOTE | 2017-05-26 13:35 | HOSPPROG ---
Hospitalist Progress Note Assessment/Plan: # encephalopathy - improved - d/t narcotics # a-fib, RVR - now NSR; trigger hypovolemia vs surgery - was in a-fib for approx 12 hours - low risk for CVA overall; significant risk with anticoagulation given recent spinal surgery - hold for now - stop metop today for bradycardia # MOON - resolved now; follow for recurrence # hyperglycemia, pre-DM - glucs reasonable - cont lispro SSI # hiccups - thorazine prn # MARII - cpap # L2-S1 TLIF POD#7 - dr V - s/p blood patch yesterday - needs another 24 hours of lying flat Objective: Vital Signs Temp Pulse Resp BP Pulse Ox 37.3 C 62 11 L 112/49 L 95 05/26/17 11:36 05/26/17 11:36 05/26/17 11:36 05/26/17 11:36 05/26/17 11:36 Microbiology 05/25/17 17:00 Gram Stain - Final Back - Aspirate Laboratory Results 05/25/17 04:45 05/25/17 04:45 05/25/17 05/26/17 05/27/17 05:59 05:59 05:59 Intake Total 2550 2220 Output Total 2405 2014 Balance 145 205 tele personally reviewed echo reviewed - Physical Exam Constitutional: other (lying flat) Cardiovascular: regular rate and rhythym, no murmur, rub, or gallop Respiratory: no respiratory distress, no rales or rhonchi Gastrointestinal: soft, non-tender abdomen, no palpable masses ICD10 Worksheet Patient Problems: Problems Problem Status Onset Fusion of spine of cervical region Acute
--- NOTE | 2017-05-26 15:31 | ASMTCMCOM ---
CM Note CM Note Notes: SALMA spoke w/ Olimpia at [facility], [facility]. Pt has been accepted to [facility] for SNF. CM sent updates to Olimpia F#: [phone]. Olimpia requested that all updates are sent to her attention. CM to follow. Plan: [facility] SNF Date Signed: 05/26/2017 03:30 PM Electronically Signed By:BERNARDA Rebollar
[2017-05-26] MEDS: POLYETHYLENE GLYCOL 3350 17 GM PKT PO SCH ×3 (18:33→22:43)
[2017-05-27] MEDS: ACETAMINOPHEN 500 MG TAB PO SCH ×3 (05:44→20:38)
[2017-05-27] MEDS: GABAPENTIN 300 MG CAP PO SCH ×3 (05:44→20:38)
--- NOTE | 2017-05-27 07:58 | SOAPPROG ---
SOAP Progress Note Assessment/Plan: Assessment: s/p L2-S1 TLIF complicated by durotomies requiring lumbar drain. bilateral lateral thigh discomfort this AM, no new neuro changes Plan: will raise HOB today slowly per use CPAP at night RN to call if patient develops MOON Discussed with Dr. Caban 05/27/17 07:55 Subjective: lying in bed, flat, felt hot last night and reports tightness in his lateral thighs, no new numbness, tingling or weakness Objective: Vital Signs Temp Pulse Resp BP Pulse Ox 37 C 71 18 134/82 H 92 05/27/17 04:00 05/27/17 04:00 05/27/17 04:00 05/27/17 04:00 05/27/17 04:00 Microbiology 05/25/17 17:00 Gram Stain - Final Back - Aspirate Laboratory Results 05/25/17 04:45 05/25/17 04:45 05/26/17 05/27/17 05/28/17 05:59 05:59 05:59 Intake Total 22191 Output Total 2014 2549 Balance 205 -479 Neuro: A+Ox4 follows commands x 4, conversant incision: CDI no JESSICA ICD10 Worksheet Patient Problems: Problems Problem Status Onset Fusion of spine of cervical region Acute
--- NOTE | 2017-05-27 09:30 | HOSPPROG ---
Hospitalist Progress Note Assessment/Plan: # encephalopathy - improved - d/t narcotics # a-fib, RVR - now NSR; trigger hypovolemia vs surgery - was in a-fib for approx 12 hours - low risk for CVA overall; significant risk with anticoagulation given recent spinal surgery - hold for now - metop stopped for bradycardia # MOON - resolved now; follow for recurrence # hyperglycemia, pre-DM - glucs reasonable - cont lispro SSI # hiccups - resolved # MARII - cpap # L2-S1 TLIF POD#8 - dr V - s/p blood patch and 48 hours of laying flat Subjective: tired of having to lay flat Objective: Vital Signs Temp Pulse Resp BP Pulse Ox 36.9 C 72 18 131/75 H 91 L 05/27/17 08:00 05/27/17 08:00 05/27/17 08:00 05/27/17 08:00 05/27/17 08:00 Microbiology 05/25/17 17:00 Gram Stain - Final Back - Aspirate Laboratory Results 05/25/17 04:45 05/25/17 04:45 05/26/17 05/27/17 05/28/17 05:59 05:59 05:59 Intake Total 2219 2070 Output Total 2014 2549 Balance 205 471 tele personally reviewed - Physical Exam Constitutional: no apparent distress, appears nourished Cardiovascular: regular rate and rhythym, no murmur, rub, or gallop Respiratory: no respiratory distress, no rales or rhonchi Gastrointestinal: soft, non-tender abdomen, no palpable masses ICD10 Worksheet Patient Problems: Problems Problem Status Onset Fusion of spine of cervical region Acute
[2017-05-27] MEDS: INSULIN LISPRO 100 UNIT/ML SC SCH ×3 (10:20→18:19)
[2017-05-27] MEDS: CALCIUM CARB W/VIT D 500 MG TAB PO SCH (10:27)
[2017-05-27] MEDS: ACYCLOVIR 200 MG CAP PO SCH ×2 (10:27→20:38)
[2017-05-27] MEDS: CHOLECALCIFEROL VIT D3 1,000 UNITS TAB PO SCH (10:28)
[2017-05-27] MEDS: FAMOTIDINE 20 MG TAB PO SCH ×2 (10:28→20:38)
[2017-05-27] MEDS: oxyCODONE IR 5 MG TAB PO PRN ×2 (10:28→15:03)
[2017-05-27] MEDS: ENOXAPARIN 40 MG/0.4 ML SYR SC SCH (10:29)
[2017-05-27] MEDS: POLYETHYLENE GLYCOL 3350 17 GM PKT PO SCH ×4 (10:30→20:39)
[2017-05-27] MEDS: SENNOSIDES/DOCUSATE SODIUM TAB PO SCH ×3 (10:31→20:38)
[2017-05-27] MEDS: BACITRACIN OINTMENT 1 PACKET TP SCH ×2 (12:30→20:38)
[2017-05-27] MEDS: NS 1,000 ML IV SCH (12:54)
[2017-05-28] MEDS: ACETAMINOPHEN 500 MG TAB PO SCH ×3 (05:14→21:20)
[2017-05-28] MEDS: GABAPENTIN 300 MG CAP PO SCH ×3 (05:15→21:21)
[2017-05-28] MEDS: INSULIN LISPRO 100 UNIT/ML SC SCH ×3 (07:31→17:20)
--- NOTE | 2017-05-28 07:34 | SOAPPROG ---
SOAP Progress Note Assessment/Plan: Assessment: 71 yo M POD #8 L2-S1 TLIF complicated with durotomy Plan: neuro: stable, but mild headaches, advance activity today a-fib, per Hospitalists scd/yumiko/lovenox for dvt prophylaxis encephalopathy, improved with holding MScontin PT/OT please call with neuro changes discussed with Dr Bob 05/25/17 09:43 05/28/17 07:32 Subjective: some back pain and spasms, mild headache yesterday. some cramping in thighs. Objective: Vital Signs Temp Pulse Resp BP Pulse Ox 37.2 C 75 16 139/78 H 92 05/28/17 07:22 05/28/17 07:22 05/28/17 07:22 05/28/17 07:22 05/28/17 07:22 Microbiology 05/25/17 17:00 Gram Stain - Final Back - Aspirate Laboratory Results 05/25/17 04:45 05/25/17 04:45 05/27/17 05/28/17 05/29/17 05:59 05:59 05:59 Intake Total 2071 1000 Output Total 2550 4950 Balance -479 -3950 AAOx4, +FC PERRL, EOMI, no facial droop 5/5 + light touch C/D/I ICD10 Worksheet Patient Problems: Problems Problem Status Onset Fusion of spine of cervical region Acute
[2017-05-28] MEDS: POLYETHYLENE GLYCOL 3350 17 GM PKT PO SCH ×3 (08:47→22:52)
[2017-05-28] MEDS: SENNOSIDES/DOCUSATE SODIUM TAB PO SCH ×2 (08:48→22:52)
[2017-05-28] MEDS: CALCIUM CARB W/VIT D 500 MG TAB PO SCH (08:48)
[2017-05-28] MEDS: FAMOTIDINE 20 MG TAB PO SCH ×2 (08:48→21:21)
[2017-05-28] MEDS: CHOLECALCIFEROL VIT D3 1,000 UNITS TAB PO SCH (08:49)
[2017-05-28] MEDS: ACYCLOVIR 200 MG CAP PO SCH ×2 (08:49→21:21)
[2017-05-28] MEDS: ENOXAPARIN 40 MG/0.4 ML SYR SC SCH (08:49)
[2017-05-28] MEDS: BACITRACIN OINTMENT 1 PACKET TP SCH ×2 (08:49→21:21)
[2017-05-28] MEDS ORDERED: GADOBUTROL 10 ML VIAL IVP ONE (09:15)
[2017-05-28] MEDS: LIDOCAINE 4%/MENTHOL 1% PATCH TD SCH (10:59)
[2017-05-28] MEDS ORDERED: oxyCODONE IR 5 MG TAB PO PRN (12:55)
[2017-05-28] MEDS: traMADol 50 MG TAB PO PRN (14:20)
[2017-05-28] MEDS: METHOCARBAMOL 750 MG TAB PO PRN ×2 (14:21→22:45)
--- NOTE | 2017-05-28 14:43 | HOSPPROG ---
Hospitalist Progress Note Assessment/Plan: # encephalopathy - improved - d/t narcotics # a-fib, RVR - now NSR; trigger hypovolemia vs surgery - was in a-fib for approx 12 hours - low risk for CVA overall; significant risk with anticoagulation given recent spinal surgery - hold for now - metop stopped for bradycardia; may be able to restart # MOON - resolved now; follow for recurrence # hyperglycemia, pre-DM - glucs reasonable - cont lispro SSI # hiccups - resolved # MARII - cpap # L2-S1 TLIF POD#9 - dr V - s/p blood patch and 48 hours of laying flat Subjective: working with PT - standing today Objective: Vital Signs Temp Pulse Resp BP Pulse Ox 36.9 C 90 14 124/80 H 93 05/28/17 11:23 05/28/17 11:23 05/28/17 11:23 05/28/17 11:23 05/28/17 11:23 Microbiology 05/25/17 17:00 Gram Stain - Final Back - Aspirate Laboratory Results 05/25/17 04:45 05/28/17 08:19 05/27/17 05/28/17 05/29/17 05:59 05:59 05:59 Intake Total 2071 1000 Output Total 5930 6710 055 [facility] -[phone] tele personally reviewed - no a-fib - Physical Exam Constitutional: uncomfortable Cardiovascular: regular rate and rhythym, no murmur, rub, or gallop Respiratory: no respiratory distress, no rales or rhonchi Gastrointestinal: soft, non-tender abdomen, no palpable masses ICD10 Worksheet Patient Problems: Problems Problem Status Onset Fusion of spine of cervical region Acute
[2017-05-28] MEDS ORDERED: PATCH REMOVAL 1 EA PATCH TD SCH (21:00)
[2017-05-29 03:03] VITALS: RESP 16
[2017-05-29] MEDS: ACETAMINOPHEN 500 MG TAB PO SCH ×2 (06:18→12:58)
[2017-05-29] MEDS: GABAPENTIN 300 MG CAP PO SCH ×2 (06:18→12:59)
[2017-05-29] MEDS: BACITRACIN OINTMENT 1 PACKET TP SCH (08:17)
[2017-05-29] MEDS: ACYCLOVIR 200 MG CAP PO SCH (08:17)
[2017-05-29] MEDS: CALCIUM CARB W/VIT D 500 MG TAB PO SCH (08:17)
[2017-05-29] MEDS: ENOXAPARIN 40 MG/0.4 ML SYR SC SCH (08:17)
[2017-05-29] MEDS: FAMOTIDINE 20 MG TAB PO SCH (08:17)
[2017-05-29] MEDS: CHOLECALCIFEROL VIT D3 1,000 UNITS TAB PO SCH (08:17)
--- NOTE | 2017-05-29 08:21 | SOAPPROG ---
SOAP Progress Note Assessment/Plan: Assessment: 71 yo M POD #9 L2-S1 TLIF complicated by durotomy requiring Lumbar drain placement. Ongoing but improved left >Right thigh pain Plan: DC planning. He has been accepted to [facility], but patient would like to go to the facility where his son works of possible. neuro: stable, no headaches, advance activity today a-fib, per Hospitalists scd/yumiko/lovenox for dvt prophylaxis encephalopathy, improved with holding MScontin PT/OT please call with neuro changes 05/29/17 08:21 Subjective: Asleep, wakes easily and feeling Ok. He has some ongoing discomfort in bilateral thighs r>L Denies MOON and HOB is currenty at 30 degrees. Objective: Vital Signs Temp Pulse Resp BP Pulse Ox 37.1 C 72 16 120/77 91 L 05/29/17 08:00 05/29/17 08:00 05/29/17 08:00 05/29/17 08:00 05/29/17 08:00 Microbiology 05/25/17 17:00 Gram Stain - Final Back - Aspirate Laboratory Results 05/25/17 04:45 05/28/17 08:19 05/28/17 05/29/17 05/30/17 05:59 05:59 05:59 Intake Total 1000 540 Output Total 0280 1325 Balance -2340 -785 Neuro: conversant. oriented x 3. follows comands x 4 CLAY, sens +LT no JESSICA Incision: Dry ICD10 Worksheet Patient Problems: Problems Problem Status Onset Fusion of spine of cervical region Acute
[2017-05-29] MEDS: LIDOCAINE 4%/MENTHOL 1% PATCH TD SCH (08:25)
[2017-05-29] MEDS: INSULIN LISPRO 100 UNIT/ML SC SCH ×2 (08:28→13:15)
--- NOTE | 2017-05-29 08:34 | HOSPPROG ---
Hospitalist Progress Note Assessment/Plan: # encephalopathy - improved - d/t narcotics # a-fib, RVR - now NSR; trigger hypovolemia vs surgery - was in a-fib for approx 12 hours - low risk for CVA overall; significant risk with anticoagulation given recent spinal surgery - hold for now - metop stopped for bradycardia - will continue to hold # MOON - resolved # hyperglycemia, pre-DM - glucs reasonable - cont lispro SSI # hiccups - resolved # MARII - cpap # L2-S1 TLIF POD#10 - dr V - s/p blood patch and 48 hours of laying flat # dispo - ok for discharge to SNF from IM perspective; no med changes Subjective: feels slightly more mobile today Objective: Vital Signs Temp Pulse Resp BP Pulse Ox 37.1 C 72 16 120/77 91 L 05/29/17 08:00 05/29/17 08:00 05/29/17 08:00 05/29/17 08:00 05/29/17 08:00 Microbiology 05/25/17 17:00 Gram Stain - Final Back - Aspirate Laboratory Results 05/25/17 04:45 05/28/17 08:19 05/28/17 05/29/17 05/30/17 05:59 05:59 05:59 Intake Total 1000 540 Output Total 2507 8728 Balance -2667 -588 tele personally reviewed - no a-fib - Physical Exam Constitutional: other (laying in bed) Cardiovascular: regular rate and rhythym, no murmur, rub, or gallop Respiratory: no respiratory distress, no rales or rhonchi, clear to auscultation Gastrointestinal: soft, non-tender abdomen, no palpable masses ICD10 Worksheet Patient Problems: Problems Problem Status Onset Fusion of spine of cervical region Acute
[2017-05-29] MEDS: traMADol 50 MG TAB PO PRN ×2 (08:52→15:26)
[2017-05-29] MEDS: POLYETHYLENE GLYCOL 3350 17 GM PKT PO SCH ×2 (09:11→14:49)
[2017-05-29] MEDS: SENNOSIDES/DOCUSATE SODIUM TAB PO SCH (09:11)
--- NOTE | 2017-05-29 10:46 | ASMTCMCOM ---
CM Note CM Note Notes: 05/29/2017 Management Note Completed non triggering PASSR. Faxed updates to [facility] in [place]. Anticipating d/c over the weekend. Pt will require stretcher transport with O2 due to spinal precautions. Case Management d/c poc: To [facility] in [place] when medically stable. Case Management to follow. Date Signed: 05/29/2017 10:45 AM Electronically Signed By:Elle Morrison RN
[2017-05-29 12:01] VITALS: BP 127/77; PULSE 92; TEMP 97.6; O2SAT 93
--- NOTE | 2017-05-29 12:10 | PDIAF ---
- Diagnosis Diagnosis: Lumbar denerative disc disease L2-S1 Code Status: Full Code - Medication Management Discharge Medications: Medications to Continue on Transfer Acyclovir [Zovirax 200 mg (*)] 200 mg PO BID 03/16/17 [Last Taken 1 Week Ago ~] Herbals/Supplements -Info Only 1 ea PO DAILY 03/16/17 [Last Taken 2 Months Ago ~ 03/21/17] Cholecalciferol Vit D3 [Vitamin D3 (*)] 1,000 units PO DAILY 03/19/17 [Last Taken 2 Months Ago ~03/21/17] Tetrahydrozoline 0.05% [Visine (*)] 1 drop EACHEYE DAILY PRN 03/19/17 [Last Taken 05/18/17] Calcium Carbonate/Vitamin D3 [Calcium 1,000 + D3 Caplet] 1 each PO DAILY [Last Taken 2 Months Ago ~03/21/17] Acetaminophen [Tylenol ES 500 mg (*)] 1,000 mg PO Q8HRS tab 05/29/17 [Last Taken Unknown] Bacitracin Ointment 1 meliton TP BID pkt 05/29/17 [Last Taken Unknown] Enoxaparin [Lovenox 40 MG (*)] 40 mg SC DAILY #14 syr 05/29/17 [Last Taken Unknown] Famotidine [Pepcid 20 MG (*)] 20 mg PO BID tab 05/29/17 [Last Taken Unknown] Gabapentin [Neurontin 300 MG (*)] 900 mg PO Q8HRS cap 05/29/17 [Last Taken Unknown] Insulin Lispro [HumaLOG LISPRO] 0 unit SC TIDMEAL unit 05/29/17 [Last Taken Unknown] Methocarbamol [Robaxin 750 mg (*)] 750 mg PO QID PRN #60 tab 05/29/17 [Last Taken Unknown] Naloxone HCl [Narcan] 0 mg IVP PRN PRN inj 05/29/17 [Last Taken Unknown] Ondansetron Odt [Zofran Odt 4 mg (*)] 4 - 8 mg PO Q6HRS PRN tab 05/29/17 [Last Taken Unknown] Patch Removal 1 ea TD DAILY21 patch 05/29/17 [Last Taken Unknown] Polyethylene Glycol 3350 [Miralax 17 gm (*)] 17 gm PO TID pkt 05/29/17 [Last Taken Unknown] Sennosides/Docusate Sodium [Senokot-S] 1 - 2 tab PO BID tab 05/29/17 [Last Taken Unknown] diphenhydrAMINE [Benadryl 25 MG (*)] 25 - 50 mg PO Q6HRS PRN cap 05/29/17 [ Last Taken Unknown] oxyCODONE IR [Oxycodone Ir (*)] 5 - 10 mg PO Q4HRS PRN #60 tab 05/29/17 [Last Taken Unknown] traMADol [Ultram 50 mg (*)] 50 - 100 mg PO Q6 PRN tab 05/29/17 [Last Taken Unknown] Discharge Medications: Refer to the Discharge Home Medication list for PRN reason. - Orders Services needed: Registered Nurse, Physical Therapy, Occupational Therapy Oxygen: yes Diet Recommendation: no restrictions on diet, ADA 1800 consistent carb Diet Texture: Regular Texture Diet, Dysphagia 1 - Pureed, Thin Liquids, Meds Whole w/Liquids, Meds Whole in Puree [place]: Not applicable Wound Care Instructions: Check incision daily for drainage. contact Neurosurgery if noted Sutures/[place] Site: Incision is glued, no staple or steri strips or sutures to remove Equipment: LSO when out of bed - Follow Up Care Current Providers and Referrals: Esvin Paula MD [Primary Care Provider] -
--- NOTE | 2017-05-29 16:48 | ASDISCHSUM ---
Discharge Information Plan Status:SNF Medically Cleared to Leave:05/29/2017 Discharge Date:05/29/2017 03:41 PM CM D/C Disposition:Retirement Facility ADT D/C Disposition:Retirement Facility Projected Discharge Date:05/26/2017 11:00 AM Transportation at D/C:ALS/BLS Discharge Delay Reason: Follow-Up Date:05/26/2017 11:00 AM Discharge Slot: Final Diagnosis: Placement Information Referral Type:*Mcfp/SNF Referral ID:[id number] Provider Name:[facility]ET[facility] Address 1:[address] [facility] Address 2: City:[place] Selection Factors: State:[place] Patient Contact Information Contact Name:YADI Relationship: Address: [facility] Work Phone: [facility]:[place] Alternate Phone: [facility]/Zip Code:[place] [address] Email: Financial Information Financial Class:Medicare Primary Plan Desc:MEDICARE INPATIENT Primary Plan Number:[id number] Secondary Plan Desc:[employer] [place] LIFE AND CASUALTY Secondary Plan Number:[id number] Assessment Information [facility] CM Progress Note CM Note CM Note Notes: Patient is POD #1 L2-S1 TLIF. He is on bedrest, PT/OT on hold until this is discontinued. Patient lives with his Amy and has six children. Discharge needs are TBD and will be managed by Case Management. Date Signed: 05/20/2017 10:46 AM Electronically Signed By:Sydnie Burger RN [facility] CM Progress Note CM Note CM Note Notes: Patient and his both expressed today their choice for SNF rehab is [facility] in [place]. A referral was made through [employer] and a message was left for Ilsa Whitley, who Anthony (patient's son) states is the admissions contact. Ilsa's # is [phone]. Patient's son Anthony works at this SNF and wants to be able to closely monitor his progress. Explained to Anthony we steff need to make the D/C arrangements on this end including transportation as the family thought they could do it themselves. CM will follow. Date Signed: 05/22/2017 11:33 AM Electronically Signed By:Marifer Garay LCSW [facility] SALMA Progress Note CM Note CM Note Notes: 05/25/2009 Case Management Note Phone call from Misti at [facility] requesting referral be faxed to [phone]. Faxed via [employer] as facility does not utilize [employer]. Case Management d/c poc: to [facility] in [place] pending acceptance. Case Management to follow. Date Signed: 05/25/2017 02:03 PM Electronically Signed By:Elle Morrison RN [facility] [place]MA Progress Note CM Note CM Note Notes: SALMA spoke w/ Olimpia at [facility], [facility]. Pt has been accepted to [facility] for SNF. SALMA sent updates to Olimpia Ricardo#: [phone]. Olimpia requested that all updates are sent to her attention. CM to follow. Plan: [facility] SNF Date Signed: 05/26/2017 03:30 PM Electronically Signed By:BERNARDA Rebollar [facility] CM Progress Note CM Note CM Note Notes: 05/29/2017 Management Note Completed non triggering PASSR. Faxed updates to [facility] in [place]. Anticipating d/c over the weekend. Pt will require stretcher transport with O2 due to spinal precautions. Case Management d/c poc: To [facility] in [place] when medically stable. Case Management to follow. Date Signed: 05/29/2017 10:45 AM Electronically Signed By:Elle Morrison RN Case Management Discharge Plan Note Case Management Discharge Discharge Order Complete? Answers: Yes Patient to Obtain Answers: Other Notes: kelby bed side Medications delivery Transportation Arranged Answers: [facility] Stretcher Transport will Pick (Date 05/29/2017 03:00 PM & Time) Case Management Transport Answers: Yes Form Complete Faxed Final Orders Answers: Yes Agency/Facility Transfer Answers: Yes Report Printed & Faxed to Receiving Agency Family Notified Answers: Yes Notes: in room. Discharge Comments Notes: 05/29/2017 Case Management Note Notified [facility] ([phone]) of d/c. Faxed final orders via [employer]. Printed hard copies to transport with patient. Arranged [facility] transport at request of facility. Medicare to pay for transport. Per Neurosurgery BAYRON Kohler pt is unable to sit for extended periods of time and stretcher transport is appropriate. Pt requires O2. Notified RN of transport. RN to call report. Date Signed: 05/29/2017 04:47 PM Electronically Signed By:Elle Morrison RN Intervention Information Intervention Type:*IM-Signed Date of Service:05/29/2017 10:05 AM Patient Type:Inpatient Staff Member:Maren Carlton Hours: Discipline: Severity: Comment:
== END 2017-05-29 15:41 | DRG 459 ==
LOC: F3N 06:07 → OBSVTOIN 16:53 → F2N 17:03 → F3N 05-23 14:32 → F2W 05-24 03:04
PROVIDERS: ADMIT Neurological Surgery; ATTEND Neurological Surgery
PROC: 01NB0ZZ Release Lumbar Nerve, Open Approach (ICD-10-PCS; principal; 2017-05-19 08:30)
PROC: 00Q20ZZ Repair Dura Mater, Open Approach (ICD-10-PCS; principal; 2017-05-19 08:30)
PROC: 0SG10AJ Fusion of 2 or more Lumbar Vertebral Joints with Interbody Fusion Device, Posterior Approach, Anterior Column, Open Approach (ICD-10-PCS; principal; 2017-05-19 08:30)
PROC: 0SG30AJ Fusion of Lumbosacral Joint with Interbody Fusion Device, Posterior Approach, Anterior Column, Open Approach (ICD-10-PCS; principal; 2017-05-19 08:30)
PROC: 3E0U0GB Introduction of Recombinant Bone Morphogenetic Protein into Joints, Open Approach (ICD-10-PCS; principal; 2017-05-19 08:30)
PROC: 0ST40ZZ Resection of Lumbosacral Disc, Open Approach (ICD-10-PCS; principal; 2017-05-19 08:30)
PROC: 0ST20ZZ Resection of Lumbar Vertebral Disc, Open Approach (ICD-10-PCS; principal; 2017-05-19 08:30)
PROC: 3E0S3GC Introduction of Other Therapeutic Substance into Epidural Space, Percutaneous Approach (ICD-10-PCS; 2017-05-25)
DX: M51.16 Intervertebral disc disorders with radiculopathy, lumbar region (principal); M48.061 Spinal stenosis, lumbar region without neurogenic claudication; M40.56 Lordosis, unspecified, lumbar region; G92 Toxic encephalopathy; T40.605A Adverse effect of unspecified narcotics, initial encounter; G97.1 Other reaction to spinal and lumbar puncture; R73.9 Hyperglycemia, unspecified; G47.33 Obstructive sleep apnea (adult) (pediatric); R06.6 Hiccough; I48.91 Unspecified atrial fibrillation; Z98.1 Arthrodesis status
CPT/HCPCS: 92526-GN; 92610-GN; 97110-GP; 97116-GP; 97162-GP; 97165-GO; 97168-GO; 97530-GP; 97535-GO; A9585; C1713; G0009; G8978-GP-CL; G8979-GP-CI; G8987-GO-CK; G8987-GO-CL; G8988-GO-CI; G8996-GN-CI; G8996-GN-CJ; G8997-GN-CH; G8997-GN-CI; G8998-GN-CI; J0171; J0330; J0690; J1100; J1170; J1200; J1650; J1815; J2250; J2270; J2274; J2370; J2405; J2704; J3010; J3370; J7060; Q9967

== ENCOUNTER 2017-11-02 12:29 | Inpatient (IN) | payer OTHER ==
[2017-11-02] MEDS ORDERED: ACETAMINOPHEN 500 MG TAB PO ONE (13:35)
[2017-11-02] MEDS ORDERED: ceFAZolin 2 GM/DEXTROSE 100 ML IV ONE (13:35)
[2017-11-02] MEDS ORDERED: LR 1,000 ML IV ONE (13:36)
[2017-11-02] MEDS ORDERED: BACITRACIN ZINC 14.2 GM OINTTUBE TP ONE (13:54)
[2017-11-02] MEDS ORDERED: BUPIVACAINE 0.25% 30 ML SDV ONE (13:55)
[2017-11-02] MEDS ORDERED: AVITENE POWDER 1 GM JAR TP ONE (13:57)
[2017-11-02] MEDS ORDERED: CHLORHEXIDINE GLUC HIBICLENS 118 ML BTL TP ONE (13:57)
[2017-11-02] MEDS ORDERED: THROMBIN (BOVINE) 20,000 UNIT VIAL TP ONE (13:57)
[2017-11-02] MEDS ORDERED: POVIDONE-IODINE 30 GM OINTTUBE TP ONE (13:58)
[2017-11-02] MEDS ORDERED: BACITRACIN 50,000 UNITS/10 ML SYR IRR ONE (13:58)
[2017-11-02] MEDS ORDERED: ACETAMINOPHEN 500 MG TAB ONE (14:38)
[2017-11-02 14:50] LABS: PLATELET COUNT 246 10^3/uL (150-400)
[2017-11-02] MEDS ORDERED: PROPOFOL/EMULSION 500 MG/50 ML BOTTLE IV ONE (16:50)
[2017-11-02] MEDS ORDERED: fentaNYL 100 MCG/2 ML INJ ONE (16:50)
[2017-11-02] MEDS ORDERED: ALBUMIN 5% 250 ML BOTTLE IV ONE (16:57)
[2017-11-02] MEDS ORDERED: DEXMEDETOMIDINE HCL 400 MCG in NS 100 ML IV ONE (17:00)
[2017-11-02] MEDS ORDERED: PROPOFOL 200 MG/20 ML VIAL ONE (17:00)
[2017-11-02] MEDS ORDERED: GENTAMICIN SULFATE 80 MG/2 ML VIAL ONE (17:03)
--- NOTE | 2017-11-02 17:09 | PDANEPAE ---
ANE Past Medical History - Cardiovascular History Hx Hypertension: No Hx Arrhythmias: No Hx Chest Pain: No Hx Coronary Artery / Peripheral Vascular Disease: No Hx CHF / Valvular Disease: No Hx Palpitations: No Cardiovascular History Comment: DVT & PE in July 2017 - Pulmonary History Hx COPD: No Hx Asthma/Reactive Airway Disease: No Hx Recent Upper Respiratory Infection: No Hx Oxygen in Use at Home: No Hx Sleep Apnea: Yes Sleep Apnea Screening Result - Last Documented: Positive Pulmonary History Comment: Positive MARII - uses CPAP - Neurologic History Hx Cerebrovascular Accident: No Hx Seizures: No Hx Dementia: No Neurologic History Comment: Has subdural hematoma. Bilat hand numbness and tingling since C-Spine surg. Legs have occasional burning since L-Spine surgery , worse since surgery - Endocrine History Hx Diabetes: No - Renal History Hx Renal Disorders: Yes Renal History Comment: Hx renal cysts. Frequency since lumbar surgery - Liver History Hx Hepatic Disorders: No Hepatic History Comment: CLAUDE - Neurological & Psychiatric Hx Hx Neurological and Psychiatric Disorders: Yes Neurological / Psychiatric History Comment: neuropathy, left thigh nerve pain, causes muscle spasms across buttocks - Cancer History Hx Cancer: Yes Cancer History Comment: NECK SKIN CA REMOVED - Congenital Disorder History Hx Congenital Disorders: Yes Congenital History Comment: Positive Factor V Leiden - GI History Hx Gastrointestinal Disorders: No - Other Health History Other Health History: wears glasses - Chronic Pain History Chronic Pain: Yes (numbness tingling R/T spinal surgeries) - Surgical History Prior Surgeries: COLONOSCOPY. CHOLECYSTECTOMY. CARPAL TUNNEL. VASECTOMY. UMB HERNIA. cervical fusion 03/19/17. lumbar fusion 05/2017 ANE Review of Systems Review of Systems: - Exercise capacity METS (RN): 3 METS ANE Patient History - Allergies Allergies/Adverse Reactions: No Known Allergies Allergy (Verified 10/30/17 11:50) - Home Medications Home Medications: Acyclovir [Zovirax 200 mg (*)] 200 mg PO BID 03/16/17 [Last Taken 10/31/17] Clindamycin 10/30/17 [Last Taken 10/31/17] FLORASTOR 10/30/17 [Last Taken 11/01/17] Vitamin D3 10/30/17 [Last Taken 10/26/17] Warfarin Sodium 10/30/17 [Last Taken 10/27/17] - NPO status NPO Since - Liquids (Date): 11/02/17 NPO Since - Liquids (Time): 08:00 NPO Since - Solids (Date): 11/02/17 NPO Since - Solids (Time): 08:00 - Smoking Hx Smoking Status: Never smoked - Family Anes Hx Family Hx Anesthesia Complications: none ANE Labs/Vital Signs - Labs Result Diagrams: 11/02/17 14:32 11/02/17 14:32 - Vital Signs Blood Pressure: 135/83 Heart Rate: 79 Respiratory Rate: 16 O2 Sat (%): 92 Height: 182.88 cm Weight: 92.079 kg ANE Physical Exam - Airway Neck exam: FROM, increased neck circumference, short neck Mallampati Score: Class 1 Mouth exam: normal dental/mouth exam - Pulmonary Pulmonary: no respiratory distress, no rales or rhonchi, clear to auscultation - Cardiovascular Cardiovascular: regular rate and rhythym, no murmur, rub, or gallop - ASA Status ASA Status: III ANE Anesthesia Plan Anesthesia Plan: general endotracheal anesthesia Lines/Monitors: arterial line Total IV Anesthesia: Yes
[2017-11-02] MEDS ORDERED: ONDANSETRON 4 MG/2 ML VIAL IVP PRN (17:10)
[2017-11-02] MEDS ORDERED: fentaNYL 100 MCG/2 ML INJ IVP PRN (17:10)
[2017-11-02] MEDS ORDERED: DEXAMETHASONE 4 MG/ML VIAL IVP PRN (17:10)
[2017-11-02] MEDS ORDERED: LR 500 ML IV PRN (17:10)
[2017-11-02] MEDS ORDERED: NALOXONE HCL 0.4 MG/ML INJ IVP PRN (17:10)
[2017-11-02] MEDS ORDERED: ALBUTEROL 3 ML DEYVIAL IH PRN (17:10)
[2017-11-02] MEDS ORDERED: MANNITOL 20% 100 GM/500 ML BAG IV ONE (17:14)
[2017-11-02] MEDS ORDERED: levETIRAcetam 500MG/NACL 100 ML IV ONE (17:15)
[2017-11-02] MEDS ORDERED: LIDOCAINE 2% 2 ML INJ ONE (17:50)
[2017-11-02] MEDS ORDERED: PHENYLEPHRINE HCL 100 MCG/ML SYR ONE (17:50)
[2017-11-02] MEDS ORDERED: ePHEDrine SULFATE 25 MG/5 ML SYR ONE (17:50)
[2017-11-02] MEDS ORDERED: niCARdipine/NACL/200 ML BAG IV ONE (17:50)
[2017-11-02] MEDS ORDERED: ROCURONIUM 100 MG/10 ML VIAL ONE (17:50)
[2017-11-02] MEDS ORDERED: SUGAMMADEX SODIUM 200 MG/2 ML VIAL IVP ONE (18:27)
[2017-11-02] MEDS ORDERED: BISACODYL 10 MG SUPP PR PRN (18:54)
[2017-11-02] MEDS ORDERED: LACTULOSE 20 GM/30 ML UDCUP PO PRN (18:54)
[2017-11-02] MEDS ORDERED: MAGNESIUM HYDROXIDE 30 ML UDCUP PO PRN (18:54)
--- NOTE | 2017-11-02 19:04 | SOAPPROG ---
SOAP Progress Note Assessment/Plan: Assessment: 72 yo M sp bilateral jd hole craniotomy for evacuation of subdural hematomas Plan: stable head ct in am alternating high flow oxygen subdural drains open to drain below shoulder level on keprra please call with neuro changes 11/02/17 19:03 Subjective: + headache, no N/V. Objective: Vital Signs Temp Pulse Resp BP Pulse Ox 36.9 C 79 16 135/83 H 92 11/02/17 14:05 11/02/17 17:09 11/02/17 17:09 11/02/17 17:09 11/02/17 17:09 Laboratory Results 11/02/17 14:32 11/02/17 14:32 somnolent PERRL, no facial droop KYARA x 4 + light touch ICD10 Worksheet Patient Problems: Problems Problem Status Onset Fusion of spine of cervical region Acute
[2017-11-02] MEDS ORDERED: DILTIAZEM HCL/D5W 125 ML IV SCH (19:15)
--- NOTE | 2017-11-02 19:27 | GOP ---
[f rep st] OPERATIVE REPORT DATE OF OPERATION: 11/02/2017 SURGEON: Sammy Leung MD NEUROSURGEON: Sammy Leung MD. ADVANCE AGENT: Mich Doty PA-C. ANESTHESIA: General endotracheal. PREOPERATIVE DIAGNOSIS: Right-sided chronic subdural hematoma and left-sided subacute subdural hemat jayesh causing mass effect and both enlarging. POSTOPERATIVE DIAGNOSIS: Right-sided chronic subdural hematoma and left-sided subacute subdural vincent poppy causing mass effect and both enlarging. PROCEDURE PERFORMED: Left-sided stereotactic computer volumetric guided mini-craniotomy for evacuati on of subacute subdural hematoma and right-sided bur hole for chronic subdural hematoma. FINDINGS: ESTIMATED BLOOD LOSS: 50 cc. INDICATIONS: The patient is a 72-year-old man, with headaches, who was found to have bilateral subdu ral hematomas of different density but enlarging over serial scans, who presents for evacuation. DESCRIPTION OF PROCEDURE: After informed consent was obtained, the patient was taken to the operatin g room and placed in the supine position with the head in the Moses head bucker. The bifrontal ar ea was prepped and draped in a sterile fashion, and the [email or web address] neuronavigational system connected an d verified. Using computer volumetric stereotactic navigation, the ideal location for the incisions was identified overlying the coronal suture bilaterally. After these were prepped and draped in ster ile fashion, the subcutaneous intramuscular tissues were infiltrated with local anesthesia. Two smal l incisions were created using a 10 blade scalpel and a right-sided bur hole was created and the dura carefully coagulated and opened. Brownish fluid then extruded under moderately high pressure. This was copiously irrigated with normal saline. Similarly, a left-sided bur hole was created and the du ra opened. This was more of a thick and bloody consistency so this bur hole was extended and a small craniotomy flap was removed in order to allow for some more thickened blood to be removed. This was copiously irrigated and the clots were removed as best I could through a small, minimally invasive c raniotomy flap. Following this, antibiotic impregnated ventricular catheters were carefully tunneled into the subdural space under direct vision and tunneled out the skin through a separate area. The bone flap was replaced and secured on the left and this occluded the catheter, so it was therefore ta lorri back out and a small piece of Gelfoam placed over the hole. Similarly, in the bur hole on the ri ght, Gelfoam was placed. Both wounds were closed in a layered fashion using interrupted Vicryl sutur es in the galea followed by radha in the skin. Both drains were carefully flushed before closing t o make sure they were flowing freely into Joseph drainage systems. COMPLICATIONS: None. DISPOSITION: The patient is currently in the process of being repositioned for extubation. /[id number]/MODL
[2017-11-02] MEDS: NS W/ 20 KCl/L 1,000 ML IV SCH (19:49)
[2017-11-02] MEDS: SENNOSIDES/DOCUSATE SODIUM TAB PO SCH (19:52)
[2017-11-02] MEDS: levETIRAcetam 500 MG TAB PO SCH (19:52)
[2017-11-02] MEDS: ACETAMINOPHEN 325 MG TAB PO PRN (19:52)
[2017-11-02] MEDS: POLYETHYLENE GLYCOL 3350 17 GM PKT PO SCH (21:21)
[2017-11-02] MEDS ORDERED: niCARdipine/NACL 200 ML IV PRN (21:22)
[2017-11-03] MEDS: ACETAMINOPHEN 325 MG TAB PO PRN ×2 (00:14→05:18)
[2017-11-03] MEDS: ceFAZolin 2 GM/DEXTROSE 100 ML IV SCH ×2 (03:01→10:48)
[2017-11-03 03:12] LABS: PLATELET COUNT 198 10^3/uL (150-400)
--- NOTE | 2017-11-03 06:52 | NEUSURGPN ---
Date of Surgery: 11/02/17 Post Op Day: 1 Assessment/Plan: Assessment: 72 yo M sp bilateral jd hole craniotomy for evacuation of subdural hematomas POD #1 Plan: -neuro stable -awake and alert -head ct shows pneumocephalus with SD fluid collections bilaterally -images reviewed with Dr Caban and wants the right side drain removed -alternating high flow oxygen for pneumocephalus -continue with subdural drain on left open to drain below shoulder level -on keprra -d/w Dr Caban -please call with neuro changes Subjective: Awake and alert. NAD. No neck/chest/abd or gu complaints. No f/c/n/v/d. Some incisional pain. Objective: AAO x 3, PERRLA/EOMI no droop CN 2-12 grossly intact +lt touch 5/5 BUE/BLE = CDI Neuro Check Frequency: per routine Urinary Catheter in Place: No - Physician Discussed Patient with : Xochitl Patient Seen by : Xochitl Neurosurgery Physical Exam - Vitals, I&O, Labs I and O 11/02/17 11/03/17 11/04/17 05:59 05:59 05:59 Intake Total 1528 Output Total 1119 28 Balance 409 -28 Weight 98.4 kg Intake: Oral (ml) 720 IV Infused (ml) 808 NS W/ 20 KCl/L 1,000 ml @ 808 100 mls/hr IV CONT LEORA Rx#:[id number] Output: Urine (ml) 950 Urinal 950 Other Neuro Drain Output 169 28 (ml) Left Joseph 31 5 Right Joseph 138 23 Other: Intake Quantity Yes Sufficient Number of Stools Urinal 0 Vital Signs Temp Pulse Resp BP Pulse Ox 36.0 C 48 L 18 111/78 100 11/03/17 04:00 11/03/17 06:00 11/03/17 06:00 11/03/17 06:00 11/03/17 06:00 Laboratory Results 11/03/17 03:00 11/03/17 03:00 ICD10 Worksheet Patient Problems: Problems Problem Status Onset Fusion of spine of cervical region Acute
[2017-11-03] MEDS: levETIRAcetam 500 MG TAB PO SCH ×2 (08:02→21:19)
[2017-11-03] MEDS: SENNOSIDES/DOCUSATE SODIUM TAB PO SCH ×2 (08:02→21:27)
[2017-11-03] MEDS: oxyCODONE IR 5 MG TAB PO PRN (08:09)
[2017-11-03] MEDS: NS W/ 20 KCl/L 1,000 ML IV SCH (08:30)
[2017-11-03] MEDS: POLYETHYLENE GLYCOL 3350 17 GM PKT PO SCH ×3 (08:44→21:27)
--- NOTE | 2017-11-03 10:05 | GCON ---
[f rep st] CONSULTATION ADJUNCT NURSING FACULTY CONSULTATION HISTORY OF PRESENT ILLNESS: Patient is examined postoperatively after receiving bilateral jd hole craniotomy for evacuation of subdural hematomas. The patient is an extremely pleasant 72-year-old ite male with a past medical history including obstructive sleep apnea and a previous L2 to S1 TLIF i n May of this year. He was also recently hospitalized with a lower extremity DVT and PEs. This oc curred approximately 1 month prior he was on Coumadin. In discussion with the patient, he states ove rall he is feeling reasonably well. His headache is reasonably well controlled. He denies any chest pain, pleuritic-type chest pain or angina equivalent. There is no fever or night sweats. REVIEW OF SYSTEMS: Ten-point review of systems performed, negative, except for what is listed in HPI . PAST MEDICAL HISTORY: Significant for PE, DVT, obstructive sleep apnea, and a previous transforamina l lumbar interbody fusion, L2 through S1. ALLERGIES: No known allergies to medications. SOCIAL HISTORY: No history of tobacco use. Work history: Is retired from the [employer], [employer] re he worked in [employer]. He is , with 6 children. He has lived in [place] most of his l richard. FAMILY HISTORY: Noncontributory. PHYSICAL EXAM: VITAL SIGNS: Blood pressure is 117/60. Pulse is 55, respirations 13. Temperature i s 36. Oxygen saturation 97% on room air. GENERAL: He is a well-developed, well-nourished, elderly white male who is resting comfortably in no acute distress. HEENT: Eyes are PERRL, EOMI. Throat sh ows no erythema or tonsillar hypertrophy. NECK: Supple. There is no cervical adenopathy. HEART: Regular rate and rhythm, with a 2/6 systolic murmur, left sternal border, without radiation. LUNGS: Diminished breath sounds but no wheeze. ABDOMEN: Soft, nontender. Bowel sounds are present in all 4 quadrants. EXTREMITIES: No clubbing, cyanosis, or edema. LABORATORY DATA: White count is 5.7, hemoglobin 12, hematocrit 37. Platelet count is 198. Sodium 1 39, potassium 4.5, chloride 109, CO2 26, BUN 15, creatinine 0.8. Glucose is 89. CT scan of the head reveals bilateral subdural drains with decreased size of bilateral subdural hematomas. IMPRESSION: 1. Subdural hematomas. 2. Status post bilateral jd hole craniotomy for evacuation, with drains in place. 3. Recent deep vein thrombosis and pulmonary embolus. 4. History of factor V Leiden. 5. Obstructive sleep apnea. RECOMMENDATIONS: 1. Hold anticoagulation for now. 2. DVT and PE prophylaxis. 3. Stress ulcer prophylaxis. 4. PT and OT. 5. Speech evaluation if needed. 6. Adequate pain control. 7. Will discuss with Neurosurgery regarding timing of restarting anticoagulation. /[id number]/MODL
--- NOTE | 2017-11-03 11:09 | PDMN ---
Medical Necessity Medical necessity: [facility] S414 Craniotomy for Traumatic Brain Injury or Intracerebral Hemorrhage: 72 y/o s/p craniotomy for subdural hematomas, CPT 45796 [facility] only
--- NOTE | 2017-11-03 13:12 | ASMTCASEMG ---
Living Arrangements What is your living Answers: With Spouse arrangement? Who do you live with? Type Of Residence What kind of residence do Answers: House you live in? Discharge Plan Comments Coordination Status Comments Notes: Patient is an 86yo male who comes to [facility] for follow up for his subdural hematoma after his lumbar fusion. Patient will go for a bilateral craniotomy for evacuation of subacute subdural hematomas. OT/PT/BULL CHAIN OPERATOR have been ordered.D/C plan TBD. CM will follow. Date Signed: 11/03/2017 01:10 PM Electronically Signed By:Marifer Garay LCSW
[2017-11-03] MEDS: TRANEXAMIC ACID 650 MG TAB PO SCH (15:55)
[2017-11-03] MEDS: OXYCODONE/APAP 5/325 TAB PO PRN (15:55)
[2017-11-04] MEDS: TRANEXAMIC ACID 650 MG TAB PO SCH ×2 (03:29→16:41)
[2017-11-04] MEDS: oxyCODONE IR 5 MG TAB PO PRN (03:29)
--- NOTE | 2017-11-04 07:01 | NEUSURGPN ---
Date of Surgery: 11/02/17 Post Op Day: 2 Assessment/Plan: Assessment: 72 yo M s/p bilateral jd hole craniotomy for evacuation of subdural hematomas POD #2 Plan: -neuro stable -awake and alert -prior head ct shows pneumocephalus with SD fluid collections bilaterally -images reviewed with Dr Caban -left sided JESSICA output: about 25 cc in last 24 hrs per RN -alternating high flow oxygen for pneumocephalus -continue with subdural drain on left open to drain below shoulder level-I will d/w Dr Caban about timing of removal -on keprra -d/w Dr Caban -please call with neuro changes Subjective: Awake and alert. NAD. Eating/drinking and voiding. No f/c/n/v/d. Objective: AAO x 3, PERRLA/EOMI no droop CN 2-12 grossly intact +lt touch 5/5 BUE/BLE = CDI Neuro Check Frequency: per routine Urinary Catheter in Place: No - Physician Discussed Patient with : Xochitl Patient Seen by : Xochitl Neurosurgery Physical Exam - Vitals, I&O, Labs I and O 11/03/17 11/04/17 11/05/17 05:59 05:59 05:59 Intake Total 1528 1662 Output Total 1119 78 Balance 409 1584 Weight 98.4 kg Intake: Oral (ml) 720 1080 IV Infused (ml) 808 582 NS W/ 20 KCl/L 1,000 ml @ 808 582 100 mls/hr IV CONT LEORA Rx#:[id number] Output: Urine (ml) 950 Urinal 950 Other Neuro Drain Output 169 78 (ml) Left Joseph 31 23 Right Joseph 138 55 Other: Intake Quantity Yes Sufficient Number of Voids Toilet 2 Number of Stools Toilet 1 Urinal 0 Vital Signs Temp Pulse Resp BP Pulse Ox 36.9 C 56 L 14 105/52 L 97 11/04/17 04:00 11/04/17 06:00 11/04/17 06:00 11/04/17 06:00 11/04/17 06:00 Laboratory Results 11/03/17 03:00 11/03/17 03:00 ICD10 Worksheet Patient Problems: Problems Problem Status Onset Fusion of spine of cervical region Acute
[2017-11-04] MEDS: levETIRAcetam 500 MG TAB PO SCH (09:00)
[2017-11-04] MEDS: SENNOSIDES/DOCUSATE SODIUM TAB PO SCH (09:03)
[2017-11-04] MEDS: POLYETHYLENE GLYCOL 3350 17 GM PKT PO SCH ×2 (09:03→16:42)
--- NOTE | 2017-11-04 09:03 | PDINTPN ---
Electrical Design Engineer Progress Note Assessment/Plan: Assessment/plan: * Subdural hematomas-spontaneous. Likely secondary to Coumadin. * Status post bilateral bur hole craniotomy with evacuation -remains with drain * Recent deep venous thrombosis and pulmonary embolus-was recently on Coumadin -difficult decision regarding restarting anticoagulation. While Eliquis has slightly better bleeding risk profile, not certain it is worth the risk given inability to reverse if necessary. * Factor 5 Leiden * Status post IVC filter * Obstructive sleep apnea * Pain-well controlled * PT/OT * Ambulation Subjective: Sitting up in chair. Comfortable. No current headaches. Alert and oriented x3 Objective: Vital Signs Temp Pulse Resp BP Pulse Ox 36.9 C 56 L 14 105/52 L 97 11/04/17 04:00 11/04/17 06:00 11/04/17 06:00 11/04/17 06:00 11/04/17 06:00 Laboratory Results 11/03/17 03:00 11/03/17 03:00 11/03/17 11/04/17 11/05/17 05:59 05:59 05:59 Intake Total 1528 1662 Output Total 1119 78 Balance 409 1584 - Time Spent With Patient Time Spent With Patient: 35 min of time spent with patient, over 1/2 involved with coordination of care counseling. Case discussed with nursing as well as patient Physical Exam - Physical Exam General Appearance: WD/WN, alert, no apparent distress EENT: PERRL/EOMI Neck: non-tender, full range of motion, supple, normal inspection Respiratory: chest non-tender, lungs clear, normal breath sounds Cardiac/Chest: normal peripheral pulses, regular rate, rhythm Peripheral Pulses: 2+: carotid (R), carotid (L), femoral (R), femoral (L), dorsalis-pedis (R), dorsalis-pedis (L) Abdomen: normal bowel sounds, non-tender, soft Male Genitalia: deferred Rectal: deferred Skin: normal color, warm/dry Extremities: normal range of motion, non-tender, normal inspection, normal capillary refill Neuro/Psych: no motor/sensory deficits, alert, normal mood/affect, oriented x 3 ICD10 Worksheet Patient Problems: Problems Problem Status Onset Fusion of spine of cervical region Acute
[2017-11-04] MEDS: OXYCODONE/APAP 5/325 TAB PO PRN (13:13)
[2017-11-04 16:04] VITALS: BP 120/56
[2017-11-04] MEDS ORDERED: ACYCLOVIR 200 MG CAP PO SCH (21:00)
[2017-11-05] MEDS ORDERED: CHOLECALCIFEROL VIT D3 1,000 UNITS TAB PO SCH (09:00)
--- NOTE | 2017-11-06 10:45 | GPROG ---
[f rep st] PROGRESS NOTE POSTOPERATIVE NOTE Mr. Britton is a 72-year-old male who came for bilateral craniotomy for evacuation of bilateral subdu ral hematomas. The surgery was uneventful and he was awoken in the operating room, and then transpor yumiko stable with full monitoring to ICU. In ICU, his blood pressure was 119/48, pulse 81, respiratory rate 18, oxygen saturation 98%. He was awake, alert and oriented x3. He denied any pain or nausea. He had just a mild headache. No apparent anesthesia complications. /[id number]/MODL
--- NOTE | 2017-11-10 09:37 | GDS ---
ADMISSION DIAGNOSIS: Bilateral subdural hematomas. DISCHARGE DIAGNOSIS: Bilateral jd hole craniotomy for evacuation of subdural hematomas. HISTORY/PHYSICAL: Please see admission history and physical. COURSE: The patient is a 72-year-old male. He was found to have very small bilateral subdural hemat omas after lumbar spine surgery. He was followed conservatively, but experienced progression of his headaches and progressive enlargement of subdural hematoma. He was taken to the operating room on , where he underwent bilateral jd hole craniotomy for evacuation of the subdural hematoma. There were no intraoperative complications. He is admitted to the ICU with bilateral subdural drain s. These were subsequently removed on 11/04/2017. A repeat head CT was stable. He was discharged h [facility] in stable condition on 11/04/2017. Patient was discharged with craniotomy instructions, and renu mmended he return for a neurosurgical followup appointment in 10-14 days. /[id number]/MODL
== END 2017-11-04 17:00 | disposition home or self-care (01) | DRG 26 ==
LOC: F3N 12:53 → F2N 14:06
PROVIDERS: ADMIT Neurological Surgery; ATTEND Neurological Surgery
PROC: 00940ZZ Drainage of Intracranial Subdural Space, Open Approach (ICD-10-PCS; principal; 2017-11-02 16:30)
PROC: 00943ZZ Drainage of Intracranial Subdural Space, Percutaneous Approach (ICD-10-PCS; principal; 2017-11-02 16:30)
DX: I62.02 Nontraumatic subacute subdural hemorrhage (principal); D68.2 Hereditary deficiency of other clotting factors; G47.33 Obstructive sleep apnea (adult) (pediatric); Z86.718 Personal history of other venous thrombosis and embolism; Z86.711 Personal history of pulmonary embolism; Z98.1 Arthrodesis status; Z79.01 Long term (current) use of anticoagulants
CPT/HCPCS: 92507-GN; 92523-GN; 97116-GP; 97161-GP; 97165-GO; 97535-GO; C1729; G8978-GP-CK; G8979-GP-CI; G8987-GO-CI; G8988-GO-CI; G9165-GN-CI; G9166-GN-CH; J0690; J1580; J1953; J2370; J2704; J3010; P9041